=== PATIENT | female | born 1945 | race Caucasian/White ===

== ENCOUNTER 2020-05-20 09:59 | Outpatient (NON) | payer MEDICARE, OTHER, SELFPAY ==
[2020-05-21 01:53] LABS: SARS-CoV-2 RNA PCR Negative
== END 2020-05-20 10:00 ==
PROVIDERS: PCP Family Medicine; Visit Provider Physician Assistant
DX: R50.9 Fever, unspecified (principal); Z20.828 Contact with and (suspected) exposure to other viral communicable diseases
CPT/HCPCS: 87635; C9803; U0003

== ENCOUNTER → 2021-03-17 13:52 | Outpatient (CLI) | payer MEDICARE, OTHER, SELFPAY ==
--- NOTE | ~2021-03-17 | MM_ITS ---
EXAMINATION: MM screening [facility] BI w emperatriz HISTORY: Screening TECHNIQUE: Craniocaudal and mediolateral oblique 3-D tomosynthesis images were obtained and synthetic 2-D images were generated. CAD analysis was submitted and interpreted. COMPARISON: Comparison to multiple prior studies sequentially, with oldest reviewed study dated 07/17. BREAST PARENCHYMAL COMPOSITION: There are scattered areas of fibroglandular density. FINDINGS: There is no evidence of suspicious mass, calcification, or architectural distortion to sugg est malignancy in either breast. There has been no suspicious interval change. IMPRESSION: 1. No mammographic evidence of malignancy. 2. Recommend routine screening mammography in one year. BI-RADS Category 1: Negative Reviewed, dictated and finalized at location A.
== END ==
PROVIDERS: PCP Family Medicine; Visit Provider Family Medicine
DX: Z12.31 Encounter for screening mammogram for malignant neoplasm of breast (principal)
CPT/HCPCS: 77063; 77067

== ENCOUNTER 2022-01-24 11:07 | Outpatient (CLI) | payer MEDICARE, OTHER, SELFPAY ==
--- NOTE | ~2022-01-24 | XR_ITS ---
EXAM: XR wrist LT min 3V HISTORY: M25.532 -FALL LAST NIGHT, PAIN LT WRIST COMPARISON: None available FINDINGS: Decreased mineralization. No fracture or dislocation. No lytic or blastic lesion. Scattere d degenerative changes. No erosion or periosteal change. Soft tissues within normal limits. IMPRESSION: No acute osseous finding in the left wrist. Reviewed, dictated and finalized at location K.
== END 2022-01-24 11:08 | disposition home or self-care (01) ==
PROVIDERS: PCP Family Medicine; Visit Provider Family Medicine
DX: M25.532 Pain in left wrist (principal)
CPT/HCPCS: 73110

== ENCOUNTER → 2022-11-15 15:09 | Outpatient (CLI) | payer MEDICARE, OTHER, SELFPAY ==
--- NOTE | ~2022-11-15 | DEXA_ITS ---
Bone Density Report Name: ROBERTA CLARK Age: 77 Sex: Female Ethnicity: White Date of : 1945 Indication: postmenopausal osteoporosis; height loss; prior fracture; Referring Provider: Berenice Brown Study: Bone densitometry was performed. Exam Date: November 15, 2022 Accession number: [id number] Bone Density: Region BMD T-score Z-score Classification AP Spine (L1-L4) 0.898 -1.4 1.1 Osteopenia Femoral Neck (Right) 0.644 -1.8 0.3 Osteopenia Total Hip (Right) 0.771 -1.4 0.4 Osteopenia World Health Organization criteria for BMD impression classify patients as: Normal (T-score at or above -1.0), Osteopenia (T-score between -1.0 and -2.5), or Osteoporosis (T-score at or below -2.5). 10-year Fracture Risk: FRAX not reported because: Prior hip or vertebral fracture Previous Exams: Region Exam Age BMD T-score BMD Change BMD Change Date g/cm2 vs Baseline vs Previous AP Spine(L1-L4) 11/15/2022 77 0.898 -1.4 0.132* 0.132* 08/01/2009 64 0.766 -2.6 Total Hip(Right) 11/15/2022 77 0.771 -1.4 0.074* 0.074* 08/01/2009 64 0.697 -2.0 *Denotes significance at 95% confidence level, LSC for AP Spine = 0.022 g/cm2, LSC for Total Hip = 0.027 g/cm2 Clinical Information Provided by Patient: Have had a previous hip or vertebral fracture Has had a low trauma fracture Has used the following medications: Calcium Patient maximum height was 62 Menopause Age: 52 No regular weight bearing exercise Drinks caffeinated beverages Onset of menses at age 15 Number of children 2 Impression: The patient has low bone mass, based on the Right Femoral Neck T-score. The patient has risk factors, including: previous fracture. No significant bone loss was observed. Discussion: INCREASED RISK OF FRACTURE DUE TO HISTORY OF FRACTURE. The patient's previous fracture puts the patient at high risk of a future fracture. In untreated patients, the risk of osteoporotic fracture increases approximately two-fold for each 1.0 SD decrease in T-score. Low bone density is not the only risk factor for fracture; also consider factors such as patient's age, frailty or poor health, risk of falling, risk of injury, previous osteoporotic fracture, family history of osteoporosis, cigarette smoking, low body weight, etc. Not everyone with a low trauma fracture has osteoporosis; osteomalacia and other metabolic bone disorders should also be considered. Patients who have osteoporosis should be evaluated for specific diseases and conditions (secondary cause
--- NOTE | ~2022-11-15 | MM_ITS ---
EXAMINATION: MM screening [facility] BI w emperatriz HISTORY: Screening mammogram TECHNIQUE: Craniocaudal and mediolateral oblique 3-D tomosynthesis images were obtained and synthetic 2-D images were generated. CAD analysis was submitted and interpreted. COMPARISON: 03/17/2021, 06/04/2019, 11/12/2017 bilateral screening mammogram examinations BREAST PARENCHYMAL COMPOSITION: There are scattered areas of fibroglandular density. FINDINGS: There is no evidence of suspicious mass, calcification, or architectural distortion to sugg est malignancy in either breast. There has been no suspicious interval change. IMPRESSION: 1. No mammographic evidence of malignancy. 2. Recommend routine screening mammography in one year. BI-RADS Category 1: Negative Reviewed, dictated and finalized at location A. 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
== END ==
PROVIDERS: PCP Family Medicine; Visit Provider Family Medicine
DX: Z12.31 Encounter for screening mammogram for malignant neoplasm of breast (principal); Z78.0 Asymptomatic menopausal state; M85.88 Other specified disorders of bone density and structure, other site; M85.851 Other specified disorders of bone density and structure, right thigh
CPT/HCPCS: 77063; 77067; 77080

== ENCOUNTER 2023-03-07 14:59 | Emergency (ER) | payer MEDICARE, OTHER, SELFPAY ==
--- NOTE | ~2023-03-07 | CT_ITS ---
EXAMINATION: CT cervical spine wo con DATE: 03/07/2023 16:37 INDICATION: trauma TECHNIQUE: Computed tomography (CT) of the cervical spine was performed without intravenous contrast. Automated exposure control and iterative reconstruction technique were employed. The dose-length pro duct was 219.21 mGy-cm. COMPARISON: None. FINDINGS: Vertebral Body Alignment: Intact. Reversed lordosis, centered at C4. 2 mm anterolistheses at C3-4 and C7-T1, presumably on a degenerative basis. Craniocervical and atlantoaxial alignment: Moderate degenerative change. Alignment intact. Osseous structures/fracture: No evidence of a lytic or blastic process in the visualized spine. No e vidence of acute fracture. Cervical soft tissues: The paraspinal soft tissues planes are maintained. Small volume bilateral mast oid fluid collections. Biapical pleural scarring. Degenerative changes: Degenerative changes, without severe neural foraminal or central canal narrowin g. IMPRESSION: No acute fracture or traumatic malalignment in the cervical spine. Reviewed, dictated and finalized at location K.
--- NOTE | ~2023-03-07 | CT_ITS ---
EXAMINATION: CT brain wo con DATE: 03/07/2023 16:35 INDICATION: minor head . TECHNIQUE: Computed tomography (CT) of the head was performed without intravenous contrast. The mA wa s adjusted according to patient size. Iterative reconstruction technique was employed. The dose-lengt h product was 605.33 mGy-cm. COMPARISON: None. FINDINGS: No acute intracranial hemorrhage or extra-axial fluid collection. No hydrocephalus, mass, or herniation. No acute ischemic infarct. Unremarkable dural venous sinus attenuation. No acute osseous abnormality. Posterior scalp contusion and laceration. Small volume bilateral mastoid fluid. Ethmoid air cell, right frontal, right maxillary, and right sph enoid mucosal thickening. Likely cyst or polyp in the right sphenoid. The remaining aerated spaces ar e clear. Mild atrophy and chronic white matter change. Atherosclerotic intracranial calcification. IMPRESSION: No acute intracranial process. Reviewed, dictated and finalized at location K.
[2023-03-07 15:10] VITALS: BP 180/91; PULSE 68; RESP 16; TEMP 36.7; O2SAT 96
[2023-03-07] MEDS: TETANUS,DIPHTHERIA,AC PERTUSSIS ADULT (0.5 ML) BOOSTRIX IM (16:48)
--- NOTE | 2023-03-07 17:09 | ED.HEATRA ---
HPI - Head Injury General Chief complaint: Head Injury Stated complaint: GLF, lac to back of head, no LOC Time Seen by Provider: 03/07/23 16:15 History of Present Illness HPI Narrative: Patient is a 77-year-old female who presents ER after having a fall. She was in a parking lot avoiding a truck when she fell backwards striking her head. She saw stars and had immediate pain. She did not lose consciousness. She was placed in a c-collar by EMS. Patient does not take any blood thinning medications. She has no extremity pain or deformity. No additional concerns. She does have small lacerations but part of her head. She is unsure when her last tetanus shot was. Related Data Allergies Allergy/AdvReac Type Severity Reaction Status Date / Time benazepril Allergy Mild rash Verified 12/14/22 13:43 lisinopril AdvReac Unknown Cough Verified 12/14/22 13:43 Contrast Media Allergy Mild rash Uncoded 12/14/22 13:42 Review of Systems Review of Systems: All systems reviewed & are unremarkable except as noted in HPI and below Musculoskeletal: Musculoskeletal: Denies back pain, Denies arthralgias and Denies joint swelling Integumentary/Breasts: Skin/Breast: Denies erythema and Denies rash Comments: Scalp laceration Neurologic: Denies syncope, Reports headache(s), Denies focal weakness and Denies numbness PMFSH Past Medical History Medical History Hx of skin cancer, basal cell Hyperlipidemia Hypertension 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 HEAD: Normocephalic, 1 cm laceration posterior scalp. EYES: PERRL and EOMI. ENT: Mucous membranes moist. NECK: C-spine immobilized without midline tenderness. CHEST: Clear to auscultation. No respiratory distress. HEART: Regular rate and rhythm. Normal peripheral pulses. EXTREMITIES: Normal range of motion. No edema. NEURO: Alert and oriented x3. PSYCH: Normal mood and affect. Course Course Emergency Course: C-spine cleared. Laceration repaired. Tetanus updated. Patient having new stiffness in neck now and will be prescribed a muscle relaxer that she can take at home. Vital Signs Vital signs: Vital Signs Temperature 98.0 F 03/07/23 15:10 Pulse Rate 68 03/07/23 15:10 Respiratory Rate 16 03/07/23 15:10 Blood Pressure 180/91 H 03/07/23 15:10 Pulse Oximetry 96 03/07/23 15:10 Oxygen Delivery Room Air 03/07/23 15:10 Temperature 98.0 F 03/07/23 15:10 Pulse Rate 74 03/07/23 17:41 Respiratory Rate 18 03/07/23 17:41 Blood Pressure 158/84 H 03/07/23 17:41 Pulse Oximetry 98 03/07/23 17:41 Oxygen Delivery Room Air 03/07/23 15:10 Procedures Laceration Laceration 1: Date: 03/07/23 Time: 17:10 Site: scalp Size (cm): 1 Description: linear Depth: simple, single layer Pre-repair: irrigated ====== Skin Level ====== Skin layer closed with: horace Number of sutures: 2 ====== Subcutaneous Layer ====== ====== Muscle Layer ====== ====== Tendon Layer ====== MDM - Head Injury Imaging Data Radiologist's impression: ITS Impressions Head CT 03/07/23
[2023-03-07 17:41] VITALS: BP 158/84; PULSE 74; RESP 18; O2SAT 98
== END 2023-03-07 17:55 | disposition home or self-care (01) ==
LOC: ANHED 17:37
PROVIDERS: Emergency Provider Emergency Medicine; PCP Family Medicine
DX: S01.01XA Laceration without foreign body of scalp, initial encounter (principal); S13.4XXA Sprain of ligaments of cervical spine, initial encounter; Z23 Encounter for immunization; E78.5 Hyperlipidemia, unspecified; I10 Essential (primary) hypertension; F41.8 Other specified anxiety disorders; Z85.828 Personal history of other malignant neoplasm of skin; W18.39XA Other fall on same level, initial encounter
CPT/HCPCS: 12001; 70450; 72125; 90471; 90715; 99284

== ENCOUNTER 2023-04-04 12:49 | Outpatient (RCR) | payer MEDICARE, OTHER, SELFPAY ==
--- NOTE | 2023-04-04 13:44 | PTOPEVAL1 ---
Assessment and note entered by Elgin Drew Evaluation Information Assessment Status Evaluation Diagnosis dizziness Onset 03/07/23 Subjective Information Pt. report that she fell in the parking lot of [employer] on 03/07/23. She reports that she hit her head and was taken to the hospital. She reports after the fall she began to experience vertigo. she reports that she notices the dizziness with tilting her head up or down such brushing her teeth or with washing her hair. She reports she also notices with turning her head to the left. She did use meclizine, but did not notice relief with the medication. She reports that her symptoms are improving. She reports her last episode of dizziness was 2-3 days ago. She reports that she has to be able to drive because her cannot. She reports that the dizziness leaves her nervous about driving. She reports that her goal is to reduce her dizziness. Reported Pain Level Pain Score 0: Self Report Assessment PT Clinical Summary Pt. is a 78 year old female who enters the clinic due to developed dizziness. She presents with positive testing for BPPV. Pt. is instructed in the home Marybeth manuever and has a positive response to Rx with no dizziness noted on the 3rd set of the Marybeth. Skilled PT is indicated in order to continue to eliminate dizziness for improved IADL performance. Plan of Care Interventions Neuro Re-education Other Interventions canalith repositioning PT Services Indicated Yes Treatment Frequency and 1x/week x 3 visits Duration These treatments will address the objective and functional deficits as defined above. The patient will be advanced safely and appropriately in order for the patient to progress towards his/her prior level of function. Additional exercises will be introduced and as well as a comprehensive home exercise program upon discharge, if needed, ?to ensure carryover of functional gains achieved in the clinic. This treatment plan has been reviewed and agreement upon by the patient.
--- NOTE | 2023-04-04 13:47 | OPREHPOC ---
Outpatient Therapy Plan of Care This is a Multidisciplinary Plan of Care that may contain components documented by all disciplines (PT, OT, and ST.) PT Problem 1 PT Problem #1 Knowledge Deficit PT Goal 1 Goal independent performance of the home Marybeth Manuever to reduce dizziness Target Visit 2 PT Problem 2 PT Problem #2 Impaired Vestibular Syste PT Goal 1 Goal Pt. will recall no episode of dizziness in a 1 week period
--- NOTE | 2023-06-06 07:10 | PTOPDC ---
Assessment and note entered by El[facility] Evaluation Information Assessment Status Discharge - Pt Not Present Diagnosis dizziness Onset 03/07/23 Assessment PT Clinical Summary Mrs. Bacon attended her initial evaluation on . She cancelled her follow up appointment to care for her but states that she was doing much better. She has failed to return to the clinic or contact the clinic since 04/22/23. She will be discharged from our care at this time. Plan of Care PT Services Indicated
== END 2023-06-06 10:19 | disposition home or self-care (01) ==
LOC: ANHPT 12:49
PROVIDERS: PCP Family Medicine; Visit Provider Physician Assistant Medical
DX: H81.12 Benign paroxysmal vertigo, left ear (principal)
CPT/HCPCS: 95992; 97161

== ENCOUNTER 2023-12-26 11:38 | Outpatient (CLI) | payer MEDICARE, OTHER, SELFPAY ==
--- NOTE | ~2023-12-26 | US_ITS ---
Renal-Bladder ultrasound Clinical History: Chronic kidney disease Technique: Real-time sonographic imaging of the kidneys and urinary bladder was performed. Findings: The right kidney measures 10.6 cm in length and the left kidney measures 12.5 cm. There is no hydronephrosis or renal calculus identified. Renal cortical echogenicity is increased. Bilateral r enal cysts are present. The urinary bladder is moderately distended at the time of this exam. No intraluminal echoes are iden tified. No abnormal wall thickening is seen. Impression: Echogenic kidneys are compatible with chronic medical renal disease. Multiple bilateral renal cysts. No hydronephrosis is evident. Reviewed, dictated and finalized at location . Impression: Echogenic kidneys are compatible with chronic medical renal disease. Multiple bilateral renal cysts. No hydronephrosis is evident.
== END 2023-12-26 11:39 ==
LOC: MICIMG 11:39
PROVIDERS: PCP Family Medicine; Visit Provider Family Medicine
DX: N18.30 Chronic kidney disease, stage 3 unspecified (principal); N28.1 Cyst of kidney, acquired
CPT/HCPCS: 76775

== ENCOUNTER 2024-04-03 13:38 | Outpatient (CLI) | payer MEDICARE, OTHER, SELFPAY ==
--- NOTE | 2024-04-03 13:41 | ECHO_ITS ---
Patient Info Name: Estefani Bacon Age: 79 years : 1945 Gender: Female Ht: 60 in Wt: 153 lbs BSA: 1.74 m2 HR: 53 bpm BP: 165 / 82 mmHg Heart Rhythm: Sinus Rhythm Technical Quality: Fair Exam Date: 04/03/2024 1:48 PM Exam Location: Echo Lab Patient Status: Outpatient Admit Date: 04/03/2024 Staff Ordering Physician: Alden Philip DO Pan Washer Hand: Caroline Roberts RDCS Attending Provider: Alden Philip DO Referring Physician: Cedrick DASILVA; Exam Type: CA echo doppler color flow Study Info Indications R60.0 - Localized edema Complete two-dimensional, color flow and Doppler transthoracic echocardiogram is performed. Summary 1. Complete two-dimensional, color flow and Doppler transthoracic echocardiogram is performed. 2. Left ventricular chamber dimension is normal. 3. Left ventricular systolic function is normal, estimated at 65-70%. 4. The left ventricular diastolic function is grade III diastolic dysfunction. 5. E/e' 19 is elevated. 6. Left atrial chamber dimension is mildly enlarged. 7. There is trace tricuspid valve regurgitation. 8. No pulmonary hypertension, estimated pulmonary arterial systolic pressure is 34 mmHg. 9. There is trivial pericardial effusion. Left Ventricle E/e' 19 is elevated. Left ventricular chamber dimension is normal. Left ventricular systolic function is normal, estimated at 65-70%. The left ventricular diastolic function is grade III diastolic dysfunction. Right Ventricle Right ventricular systolic function is normal and with normal TAPSE 2.5 cm. Right ventricular chamber dimension is normal. Left Atria Left atrial chamber dimension is mildly enlarged. Right Atria Right atrial chamber dimension is normal. Aortic Valve The aortic valve is trileaflet. There is no aortic valve stenosis. There is no aortic valve regurgitation. Pulmonic Valve There is no pulmonic regurgitation. Mitral Valve There is no mitral valve stenosis. There is no mitral valve regurgitation. Tricuspid Valve There is trace tricuspid valve regurgitation. No pulmonary hypertension, estimated pulmonary arterial systolic pressure is 34 mmHg. Pericardium/Pleural There is trivial pericardial effusion. Inferior Vena Cava Normal inferior vena cava with >50% collapse upon inspiration consistent with normal right atrial pressure, 5 mmHg. Aorta The aortic root size at the sinus of Valsalva is normal. Left Ventricular Outflow Tract Name Value Normal LVOT 2D LVOT Diameter 2.0 cm LVOT Doppler LVOT Peak Gradient 5 mmHg LVOT Mean Gradient 2 mmHg LVOT VTI 24 cm LVOT VTI/AV VTI Ratio 0.8 LVOT Stroke Volume 74 ml LVOT CO 3.9 l/min LVOT CI 2.2 l/min/m2 Pulmonic Valve Name Value Normal RVOT Doppler RVOT Peak Gradient
== END 2024-04-03 13:39 | disposition home or self-care (01) ==
PROVIDERS: PCP Family Medicine; Visit Provider Internal Medicine Cardiovascular Disease
DX: R60.0 Localized edema (principal)
CPT/HCPCS: 93306

== ENCOUNTER 2024-07-23 13:02 | Emergency (ER) | payer MEDICARE, OTHER, SELFPAY ==
[2024-07-23 13:18] VITALS: BP 175/67; PULSE 48; RESP 16; TEMP 36.8; O2SAT 99
--- NOTE | 2024-07-23 13:36 | ED.FALL ---
HPI - Fall General Chief Complaint: Head Injury Stated Complaint: fall Time Seen by Provider: 07/23/24 13:36 Source: patient, RN notes reviewed and old records reviewed Mode of arrival: ambulatory Limitations: no limitations History of Present Illness HPI Narrative: 79-year-old female presents to the [facility] with complaints of a fall. Walking with a normal gait. Patient states that she hit the back of her head. No loss of consciousness, noted blurry vision change in vision. No nausea or vomiting. Denies chest pain. No neurologic deficits. Patient does not take blood thinners States that she went to her primary asking for radiology referral, was told to seek additional treatment. Explained to patient and family member that we do not do CT scans. Patient with no midline tenderness. No erythema, ecchymosis, laceration to the scalp Related Data Allergies Allergy/AdvReac Type Severity Reaction Status Date / Time benazepril Allergy Mild rash Verified 07/23/24 15:36 lisinopril AdvReac Unknown Cough Verified 07/23/24 15:36 Contrast Media Allergy Mild rash Uncoded 07/23/24 15:36 Review of Systems Review of Systems: All systems reviewed & are unremarkable except as noted in HPI and below Constitutional: Constitutional: Reports no additional constitutional complaints ENT: Reports system reviewed and no additional complaints, except as documented Cardiovascular: Cardiovascular: Reports no additional cardiovascular complaints, Denies chest pain and Denies dyspnea Respiratory: Respiratory: Reports no additional respiratory complaints, Denies chest congestion, Denies cough and Denies dyspnea Gastrointestinal: Gastrointestinal: Reports no additional gastrointestinal complaints, Denies abdominal pain, Denies nausea and Denies vomiting Musculoskeletal: Musculoskeletal: Reports no additional musculoskeletal complaints Integumentary/Breasts: Skin/Breast: Reports system reviewed and no additional complaints, except as docu PMFSH Past Medical History Medical History Chronic renal insufficiency, stage III (moderate) Hx of skin cancer, basal cell Hyperlipidemia Hypertension 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) Surgical History Surgical History Basal cell carcinoma of nasal crease History of hip surgery Family History Family History Other Cerebrovascular accident Family history of malignant neoplasm of breast in first degree relative Hypertension Social History Social History Smoking status: Never smoker Second hand tobacco smoke exposure: No Alcohol intake: current Substance use: never Substance use type: does not use Do You Feel Safe in your Home?: Yes Lack of Transportation: No Lack of Food: Never True Current Housing: I Have Housing Concerned About Future Housing: No Difficulty Paying Gas/Electric Bills: No Difficulty Paying for Meds: No Currently Unemployed: No Difficulty w/ Childcare or Family Care: No Living arrangements: with family Gender identity (if verbalized by the patient): Female Sexual Orientation (if Verbalized by the Patient): Straight or Heterosexual Spiritual care concerns: No Agree to blood products: Yes Comments At the time of my signature, I reviewed and agree with the nursing past medical, surgical, social, and family history. There is no relevant family history pertinent to the patient complaint. Exam Const: General: cooperative, healthy appearing, comfortable, no acute distress, well developed, alert and well nourished Nutritional Appearance: well nourished Orientation/consciousness: patient oriented x3 Limitations: no limitations HENMT: Head: normal to inspection Ears: hearing grossly normal bilaterally, external ears normal, TM's normal bilaterally, EAC's normal, mastoids normal and no periauricular adenopathy Face/Nose/Sinus: Normal external nose present, normal facial exam and face symmetric Face and sinus: normal facial exam and face symmetric Mouth: Yes Normal oral and palatal mucosa present, Yes lip normal and Yes tongue normal Throat: posterior oropharynx normal, uvula midline and no uvular edema Eyes: General: appearance normal, both eyes and all related structures Alignment and Position: alignment normal Periorbital: periorbital findings normal Neck: Neck: normal visual inspection, full ROM, no lymphadenopathy and no meningeal signs Chest: Chest palpation & inspection: normal inspection of the chest Resp: Effort & Inspection: normal respiratory effort and able to speak in complete sentences Auscultation: clear to auscultation bilaterally, no crackles, no rales, no rhonchi and no wheezes Cardio: Rate: regular rate Back/Spine/Pelvis: Back: no CVA tenderness Cervical Spine: normal cervical lordosis, cervical ROM normal, No cervical muscular tenderness and No pain with cervical ROM Thoracic/Lumbar Spine: thoracic and lumbar spine normal to inspection, No thoracic spinal tenderness and No lumbar spinal tenderness Skin: General skin exam: normal color and no rashes or lesions noted Lesions: no lesions Rashes: no rashes Wounds: no wounds Neuro: General: patient oriented x3, gait normal, tone normal, moves all extremities and no meningeal signs Cognition (Neuro): normal cognition Speech: normal speech Gait exam (Neuro): Normal gait present Extrem: General: normal to inspection, full ROM, capillary refill normal and normal gait Psych: Appearance: grossly normal and well kempt Mental Status: mental status grossly normal Speech and movement: Normal speech and movement present and Clear speech present Affect: normal affect Attitude: cooperative Course Course Level of Care: Express Care Visit Vital Signs Vital signs: Vital Signs Temperature 98.2 F 07/23/24 13:18 Pulse Rate 48 L 07/23/24 13:18 Respiratory Rate 16 07/23/24 13:18 Blood Pressure 175/67 H 07/23/24 13:18 Pulse Oximetry 99 07/23/24 13:18 Temperature 98.2 F 07/23/24 13:18 Pulse Rate 48 L 07/23/24 13:18 Respiratory Rate 16 07/23/24 13:18 Blood Pressure 175/67 H 07/23/24 13:18 Pulse Oximetry 99 07/23/24 13:18 Reviewed MDM - Fall MDM Narrative Medical decision making narrative: Patient sitting comfortably in exam room. Nontoxic, vitals stable. Patient presents with family member Discussed that we do not do CT scans. Patient with age concern for head trauma however patient denies any symptoms, not on blood thinners. Patient appropriate for outpatient treatment with follow-up, long discussion had with signs and symptoms to call 911 or go directly to the emergency room which patient and family member both verbalized understanding Discharge instructions reviewed with patient, as well as provided in writing per nursing staff. The instructions also include specific and strict return/GO TO THE ER as well as f/u information. All questions have been answered, and the patient deny any further questions with discharge and discharge plan. Some parts of this dictation were generated by voice recognition software and may contain typographical and/or grammatical inaccuracies. Differential Diagnosis Differential diagnosis: Likely concussion without loss of consciousness and other (Minor head trauma) Critical Care Time Critical Care Time Critical Care Time: No Discharge Plan Discharge Clinical Impression: Fall, Minor head injury Patient Disposition: Home, Self-Care Condition: Stable Instructions: Head Injury (ED), Fall Prevention (ED) Additional Instructions: If you develop any type of weakness, dizziness, blurry vision, change in vision, nausea, vomiting please go directly to the nearest emergency room. Patient Language: Burkinan Prescriptions: No Action atorvastatin 40 mg tablet 40 mg PO DAILY Qty: 90 3RF metoprolol succinate [Toprol XL] 100 mg tablet extended release 24 hr 100 mg PO DAILY Qty: 90 1RF valsartan 160 mg tablet 160 mg PO DAILY Qty: 90 1RF escitalopram oxalate 10 mg tablet 10 mg PO DAILY Qty: 90 2RF amlodipine 5 mg tablet 5 mg PO DAILY Qty: 90 2RF Follow-up/Referrals: Carmen Hightower MD [Primary Care Provider] - 1 Week ([facility] follow-up) Time of Disposition: 13:45
== END 2024-07-23 13:52 | disposition home or self-care (01) ==
PROVIDERS: Emergency Provider Nurse Practitioner; PCP Family Medicine
DX: S09.90XA Unspecified injury of head, initial encounter (principal); W19.XXXA Unspecified fall, initial encounter; I12.9 Hypertensive chronic kidney disease with stage 1 through stage 4 chronic kidney disease, or unspecified chronic kidney disease; N18.30 Chronic kidney disease, stage 3 unspecified; E78.5 Hyperlipidemia, unspecified; Z85.828 Personal history of other malignant neoplasm of skin
CPT/HCPCS: 99213; G0463

== ENCOUNTER 2024-09-28 14:53 | Outpatient (CLI) | payer MEDICARE, OTHER, SELFPAY ==
--- NOTE | ~2024-09-28 | MM_ITS ---
EXAMINATION: MM screening farrah BI w emperatriz HISTORY: Screening mammogram, family history of breast cancer in her sister. TECHNIQUE: Craniocaudal and mediolateral oblique 3-D tomosynthesis images were obtained and synthetic 2-D images were generated. CAD analysis was submitted and interpreted. COMPARISON: 11/15/2022, 03/17/2021, 06/04/2019 BREAST PARENCHYMAL COMPOSITION:Not Dense. There are scattered areas of fibroglandular density. FINDINGS: No suspicious mass, calcification, or architectural distortion are identified in either isabell ast to suggest malignancy. There has been no suspicious interval change. IMPRESSION: No mammographic evidence of malignancy. Recommend routine screening mammography in one year. BI-RADS Category 1: Negative Reviewed, dictated and finalized at location . INUING EDUCATION DIRECTOR
== END 2024-09-28 14:54 | disposition home or self-care (01) ==
PROVIDERS: PCP Family Medicine; Visit Provider Family Medicine
DX: Z12.31 Encounter for screening mammogram for malignant neoplasm of breast (principal)
CPT/HCPCS: 77063; 77067

== ENCOUNTER 2024-11-12 10:24 | Emergency (ER) | payer MEDICARE, OTHER, SELFPAY ==
[2024-11-12 10:57] VITALS: BP 108/63; PULSE 61; RESP 16; TEMP 37.1; O2SAT 99
--- NOTE | 2024-11-12 11:07 | ED.URI ---
HPI - URI/Sore Throat General Chief Complaint: Upper Respiratory Infection Stated Complaint: COUGH/CONGESTION Time Seen by Provider: 11/12/24 11:05 Source: patient, RN notes reviewed and old records reviewed Mode of arrival: ambulatory Limitations: no limitations History of Present Illness HPI Narrative: 79 year old female who presents to [facility] care with complaints of cough,body aches, SOB with exertion, runny nose, diarrhea this am,and some coughing fits with deep breathing for the past 4 days. Patient reports no fevers, no ear pain, or any sore throat or any difficulty with her breathing. Patient reports fatigue. Patient reports that she has been taking Mucinex, Tylenol and also Flonase nasal spray and also used Vicks. MD elicited complaint: cough Onset (ago): day(s) (4) Severity: moderate Able to tolerate fluids by mouth: Yes Treatments prior to arrival: acetaminophen and other (Flonase Mucinex and Vicks) Related Data Allergies Allergy/AdvReac Type Severity Reaction Status Date / Time benazepril Allergy Mild rash Verified 11/12/24 11:01 lisinopril AdvReac Unknown Cough Verified 11/12/24 11:01 Contrast Media Allergy Mild rash Uncoded 11/12/24 11:01 Review of Systems Review of Systems: CONSTITUTIONAL: Reports malaise,no chills, sweats, or fever. EYES: Denies visual changes, redness, or discharge. ENT: Reports rhinorrhea, congestion, no sinus pain,no otalgia and nosore throat. CARDIOVASCULAR: Denies chest pain, palpitations, or edema. RESPIRATORY: Reports cough.? Reports dyspnea with some exertion and coughing fits GASTROINTESTINAL: Denies abdominal pain, nausea, vomiting,+ diarrhea today. SKIN: Denies rash or itching. MUSCULOSKELETAL: Reports myalgia. NEUROLOGIC: Denies headache. 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) Hx of skin cancer, basal cell Hyperlipidemia Hypertension Surgical History Surgical History Basal cell carcinoma of nasal crease History of hip surgery Family History Family History Other Cerebrovascular accident Family history of malignant neoplasm of breast in first degree relative Hypertension Social History Social History Smoking status: Never smoker Second hand tobacco smoke exposure: No Alcohol intake: current Substance use: never Substance use type: does not use Do You Feel Safe in your Home?: Yes Lack of Transportation: No Lack of Food: Never True Current Housing: I Have Housing Concerned About Future Housing: No Difficulty Paying Gas/Electric Bills: No Difficulty Paying for Meds: No Currently Unemployed: No Difficulty w/ Childcare or Family Care: No Living arrangements: with family Gender identity (if verbalized by the patient): Female Sexual Orientation (if Verbalized by the Patient): Straight or Heterosexual Spiritual care concerns: No Agree to blood products: Yes Comments At time of signature, agree with nursing past medical, surgical, social and family history. There is no relevant family history pertinent to the presenting complaint Exam Narrative: GENERAL: Well-appearing, well-nourished, and in no acute distress. HEAD: Normocephalic EYES: PERRLA, conjunctivae clear ENT: Nares clear, turbinates edematous and erythematous, clear discharge. Mucous membranes moist. TM pearly garcai with dull light reflex bilaterally; no tragal tenderness. Oropharynx erythematous without lesions. Tonsils not enlarged and without exudate, no drooling, no hoarseness, no trismus, uvula midline.post nasal discharge NECK: Supple. No lymphadenopathy CHEST: Clear to auscultation, breath sounds equal. No wheezing, rhonchi, rales, or stridor. No respiratory distress, speaks in full sentences.cough present SAO2 99% on room air HEART: Regular rate and rhythm. No murmur heard. SKIN: Warm, dry, no rash. NEURO: Alert and oriented x3. PSYCH: Normal mood and affect Course Course Emergency Course: Patient is aware of diagnosis, understands and agrees to treatment plan.? Anticipatory guidance given.? Patient agrees to follow-up as directed and is aware of reasons to seek care at the emergency department. Portions of this record may have been created with voice recognition software Level of Care: Express Care Visit Vital Signs Vital signs: Vital Signs Oxygen Delivery Room Air 11/12/24 10:55 Temperature 37.1 C 11/12/24 10:57 Pulse Rate 61 11/12/24 10:57 Respiratory Rate 16 11/12/24 10:57 Blood Pressure 108/63 11/12/24 10:57 Pulse Oximetry 99 11/12/24 10:57 Oxygen Delivery Room Air 11/12/24 10:55 Reviewed MDM - URI/Sore Throat MDM Narrative Medical decision making narrative: Differential diagnosis considered: Juarez virus, strep pharyngitis, allergic rhinitis, upper respiratory tract infection, sinusitis, rhinosinusitis, nasopharyngitis. viral pharyngitis, otitis media, otitis externa, pneumonia, bronchitis, viral cough syndrome, viral syndrome, and influenza.? Exam findings show no acute concerns or changes; patient is non-toxic appearing and is in no distress.? Patient is appropriate for outpatient treatment and follow-up. Differential Diagnosis Differential diagnosis: Likely upper respiratory infection, viral infection, influenza and other (COVID acute cough) Medical Records Attestation: I reviewed the patient's medical records. Lab Data Attestation: I reviewed the patient's lab results. Lab results narrative: Influenza A positive, Influenza B negative, COVID antigen negative Labs: Lab Results 11/12/24 Range/Units 11:18 POC Influenza A Ag Positive (Negative) POC Influenza B Ag Negative (Negative) POC SARS CoV-2 Ag Negative (Negative) reviewed Critical Care Time Critical Care Time Critical Care Time: No Discharge Plan Discharge Clinical Impression: Influenza A Patient Disposition: Home, Self-Care Condition: Stable Instructions: Antibiotic Form, Influenza (ED), Acute Cough (ED) Additional Instructions: Increase fluids especially juices and water [id number] cough and cold medicine of your choice for your symptoms continue Mucinex daily must drink plenty of fluids while taking this medication Steroids as directed--take with food heat to the face 20-30 minutes 4-6 times a day for pain Salt water gargles, throat lozenges or throat sprays as desired Tylenol or ibuprofen for any fever or pain If your symptoms persist, change or worsen significantly before you can contact your personal physician then please, without delay, go to the emergency department for further evaluation. Follow-up with PCP in 7-10 days or sooner if needed must be fever free without use of Tylenol or ibuprofen for 24 hours before you can be around others, typically fluid last about 5 days Patient Language: Botswanan Prescriptions: New prednisone 20 mg tablet 40 mg PO DAILY Qty: 10 0RF No Action atorvastatin 40 mg tablet 40 mg PO DAILY Qty: 90 3RF escitalopram oxalate 10 mg tablet 10 mg PO DAILY Qty: 90 2RF amlodipine 5 mg tablet 5 mg PO DAILY Qty: 90 2RF metoprolol succinate [Toprol XL] 100 mg tablet extended release 24 hr 100 mg PO DAILY Qty: 90 1RF valsartan 160 mg tablet 160 mg PO DAILY Qty: 90 1RF Follow-up/Referrals: Carmen Hightower MD [Primary Care Provider] - Time of Disposition: 11:24 Quality Renan Coma Scale Eyes: Open Verbal: Oriented and Alert Motor: Follows Commands Renan Coma Total Score: 15
[2024-11-12 11:21] LABS: EDCOVIDSCREEN Negative (Negative); EDINFLUASCREEN Positive (Negative); EDINFLUBSCREEN Negative (Negative)
== END 2024-11-12 11:28 | disposition home or self-care (01) ==
PROVIDERS: Emergency Provider Registered Nurse; PCP Family Medicine
DX: J10.1 Influenza due to other identified influenza virus with other respiratory manifestations (principal); Z20.822 Contact with and (suspected) exposure to COVID-19; I12.9 Hypertensive chronic kidney disease with stage 1 through stage 4 chronic kidney disease, or unspecified chronic kidney disease; N18.30 Chronic kidney disease, stage 3 unspecified; E78.5 Hyperlipidemia, unspecified; Z85.828 Personal history of other malignant neoplasm of skin; F41.3 Other mixed anxiety disorders; F32.A Depression, unspecified
CPT/HCPCS: 87426; 87804; 99213; G0463

== ENCOUNTER 2025-01-29 12:43 | Emergency (ER) | payer MEDICARE, OTHER, SELFPAY ==
[2025-01-30 13:19] LABS: EDINFLUASCREEN Negative (Negative); EDINFLUBSCREEN Negative (Negative)
[2025-02-04 08:57] LABS: EDCOVIDSCREEN NEGATIVE (Negative)
== END 2025-01-29 13:22 | disposition home or self-care (01) ==
PROVIDERS: Emergency Provider Nurse Practitioner Family; PCP Family Medicine
DX: J06.9 Acute upper respiratory infection, unspecified (principal); Z20.822 Contact with and (suspected) exposure to COVID-19
CPT/HCPCS: 87081; 87426; 87637; 87804; 87880; 99213; G0463

== ENCOUNTER 2025-04-05 12:31 | Outpatient (CLI) | payer MEDICARE, OTHER, SELFPAY ==
--- NOTE | ~2025-04-05 | XR_ITS ---
EXAM/ PROCEDURE: XR hand LT min 3V - 04/05/2025 12:41 CDT HISTORY: 80 years old Female with M79.642 - Pain in left hand COMPARISON: None available TECHNIQUE: Three view(s) FINDINGS/ IMPRESSION: There are no fractures or dislocations.Joint space narrowing, subchondral sclerosis, subchondral cyst formation and osteophyte formation, compatible with mild osteoarthritis. Reviewed, dictated and finalized at location A.
== END 2025-04-05 12:32 | disposition home or self-care (01) ==
PROVIDERS: PCP Physician Assistant Surgical; Visit Provider Physician Assistant Surgical
DX: M79.642 Pain in left hand (principal)
CPT/HCPCS: 73130

== ENCOUNTER 2025-04-06 12:40 | Emergency (ER) | payer MEDICARE, OTHER, SELFPAY ==
[2025-04-06] VITALS (11 sets, daily range): BP systolic 147–171; BP diastolic 55–81; PULSE 60–73; RESP 13–22; TEMP 36.6; O2SAT 95–100
--- NOTE | ~2025-04-06 | XR_ITS ---
EXAMINATION: XR chest 2V Exam Date/Time: 04/06/2025 15:53 CDT HISTORY: weakness Comparison: None. RESULT: Lines, tubes, and devices: None. Lungs and pleura: Subsegmental consolidation in the right upper lobe. Cardiomediastinal silhouette: Stable. Other: No acute osseous or upper abdominal finding. IMPRESSION: Findings concerning for subsegmental right upper lobe pneumonia. Reviewed, dictated and finalized at location K.
--- OUTSIDE RECORDS SUMMARY | 2025-04-06 12:42 | XMS_ITS | Clinical Summary ---
Author Organization [facility] [address] Address [address] [place] [id number] Care Team Providers Care Juvenile Officer Name Role Phone Carmen Hightower MD Primary Care Provider [phone] Allergies Active Allergy Reactions Criticality Noted Date Comments Benazepril Iodine And Iodide Containing Products Medications metoprolol XL (TOPROL-XL) 50 mg 24 hr tablet take 1 tablet by oral route every day 30 6 5 Active losartan (COZAAR) 100 mg tablet take 1 tablet by oral route every day 0 0 5 Active Additional Information Patient not taking.Reported on 05/18/2022 valACYclovir (VALTREX) 500 mg tablet take 1 tablet by oral route every day 0 0 5 Active amLODIPine (NORVASC) 5 mg tablet take 1 tablet by oral route every day 0 0 5 Active atorvastatin (LIPITOR) 40 mg tablet take 1 tablet by oral route every day 0 0 5 Active valsartan (DIOVAN) 80 mg tablet 2 Active escitalopram (LEXAPRO) 10 mg tablet 2 Active metoprolol XL (TOPROL-XL) 100 mg 24 hr tablet 2 Active Active Problems Problem Noted Date Diagnosed Date Lightheadedness 09/19/2015 Overview (12/21/2016): Lightheadedness Bradycardia 06/13/2015 Overview (12/21/2016): Bradycardia Benign hypertension 06/13/2015 Overview (12/21/2016): HTN (hypertension), benign Dyslipidemia 06/13/2015 Overview (12/21/2016): Dyslipidemia Dizziness 06/13/2015 Overview (12/21/2016): Dizziness Palpitations 06/13/2015 Overview (12/21/2016): Palpitations Medical History Medical History Date Comments Superficial basal cell carcinoma Cancer, basal Cell; Comments: [facility] 06/13/2015 - Osteoporosis Osteoporosis Hypertension Hypertension Hypercholesterolemia Hypercholes terolemia; Comments: [facility] 06/13/2015 - Family History Medical History Relation Name Comments Heart attack Father 2 Myocardial infa rction; Cause of : Myocardial infarction Other Mother auto accident; Breast cancer Sister Cancer, breast ; Relation Name Status Comments Father 1 Father 2 Mother Sister Social History Tobacco Use Types Packs/Day Years Used Date Smoking Tobacco: Never Alcohol Use Standard Drinks/Week Comments Yes 0 (1 standard drink = 0.6 oz pur e alcohol) Personal Safety Answer Date Recorded Getting School Help Needed Not on file 08/28 Comments Unknown Sex and Gender Information Value Date Recorded Sex Assigned at Not on file Legal Sex Female 9:25 AM [employer] Gender Identity Not on file Sexual Orientation Not on file Obstetrics History Last Filed Vital Signs Vital Sign Reading Time Taken Comments Blood Pressure 136/88 01/09/2023 4:13 PM CDT Pulse 60 01/09/2023 4:13 PM CDT Temperature 36.8 C (98.3 F) 10/17/2022 10:23 AM [employer] Respiratory Rate 14 01/09/2023 4:13 PM CDT Oxygen Saturation 96% 01/09/2023 4:13 PM CDT Inhaled Oxygen Concentration - - Weight 70.8 kg (156 lb) 01/09/2023 4:13 PM CDT Height 154.9 cm (5' 1) 01/09/2023 4:13 PM CDT Body Mass Index 29.48 01/09/2023 4:13 PM CDT Plan of Treatment Health Maintenance Due Date Last Done Comments Depression Screening 1945 Fall Risk Assessment 1945 Hepatitis C Screening 1945 Osteoporosis Screening-Bone Density Scan 1945 DTaP/Tdap/Td Vaccine (1 - Tdap) 1958 Hepatitis B Screening 1965 Pneumococcal vaccine 65+ (1 of 1 - PCV) 1997 Zoster Vaccine (1 of 2) 1997 Well Visit 65+ 2012 Covid-19 Vaccine ( season) 05/17/202401/2021, 10/20/2020 Influenza Vaccine (#1) 2025 Insurance MEDICARE [facility] Address: [address] [address] [place] [address] [employer] Care Teams Juvenile Officer Relationship Specialty Start Date End Date Carmen Hightower MD PCP - General 08/27/08
--- OUTSIDE RECORDS SUMMARY | 2025-04-06 12:42 | XMS_ITS | Clinical Summary ---
Author Organization [facility] Address [address] [place] [address] Care Team Providers Care Mechanical Cad Designer Name Role Phone Carmen Hightower MD Primary Care Provider [phone] Source Comments [facility],non-owned Affiliates and Associated Physician Practices is amultiple site organization consisting of ambulatory clinics and hospital sitesin [place], [place], [place] and [place]. This disclosure is being madepursuant to the Care Everywhere program and may not contain all information available regarding this patient. Last updated 18.[facility] Allergies Active Allergy Reactions Criticality Noted Date Comments Contrast-Iodinated Agents For Ct/Other Urticaria,Nausea and/or Vomiting Medium 06/04/2024 Benazepril Rash Medium 04/04/2011 Medications * Be aware that medications may not be up to date on this document. Alwaysverify current medications with the patient. atorvastatin (LIPITOR) 40 MG tablet Take 1 (one) tablet by mouth Active metoprolol succinate XL 24hr (TOPROL XL) 100 MG tablet Take 1 (one) tablet by mouth Active valsartan (Diovan) 160 MG tablet Take 1 (one) tablet by mouth once daily 01/29/2020 Active escitalopram (LEXAPRO) 5 MG tablet Take 1 (one) tablet by mouth once daily Active amLODIPine (NORVASC) 5 MG tablet 2 (two) tablets every 24 hours Active hydrocortisone (Hytone) 2.5 % creamIndication s:Intertrigo APPLY TO AREA OF RASH UNDER BREASTS TWICE A DAY NEEDED 30 g 3 11/27/2024 Active ketoconazole (Nizoral) 2 % creamIndication s:Intertrigo APPLY TO AREA OF RASH UNDER BREASTS TWICE A DAY NEEDED 30 g 3 11/27/2024 Active Active Problems Problem Noted Date Diagnosed Date History of malignant melanoma of skin 11/29/2023 Melanoma of neck 12/22/2020 Basal cell carcinoma of nose 08/01/2018 Family history of melanoma 05/06/2018 Assessment & Plan (12/05/2020 11:22 AM CDT): Sister with prior melanoma Photoprotection Self exams Skin exams Actinic keratosis 05/06/2018 Seborrheic keratosis 05/06/2018 Personal history of other malignant neoplasm of skin 07/13/2016 Assessment & Plan (12/05/2020 11:23 AM CDT): Several prior nmsc Self exams Skin exams Photoprotection Lightheadedness 09/19/2015 Overview (11/25/2020): Dizziness Lightheadedness Benign hypertension 06/13/2015 Overview (11/25/2020): HTN (hypertension), benign Bradycardia 06/13/2015 Overview (11/25/2020): Bradycardia Dyslipidemia 06/13/2015 Overview (11/25/2020): Dyslipidemia Palpitations 06/13/2015 Overview (11/25/2020): Palpitations Resolved Problems Problem Noted Date Diagnosed Date Resolved Date Basal cell carcinoma of nasal tip 07/02/2018 07/02/2018 Family History Medical History Relation Name Comments None Known Brother CVA Father Hypertension Father None Known Maternal Aunt None Known Maternal Grandfather None Known Maternal Grandmother None Known Maternal Uncle Hypertension Mother None Known Other None Known Paternal Aunt None Known Paternal Grandfather None Known Paternal Grandmother None Known Paternal Uncle Cancer - Skin, Non Melanoma Sister 1 Cancer - Skin, Melanoma Sister 2 Cancer Sister 3 breast Allergy (Severe) Neg Hx Asthma Neg Hx Cancer - Breast Neg Hx Cancer - Other Neg Hx Eczema Neg Hx Hemophilia Neg Hx Psoriasis Neg Hx Rashes/Skin Problems Neg Hx Relation Name Status Comments Brother Father Maternal Aunt Maternal Grandfather Maternal Grandmother Maternal Uncle Mother Other Paternal Aunt Paternal Grandfather Paternal Grandmother Paternal Uncle Sister 1 Alive Sister 2 Alive Sister 3 Alive Social History Tobacco Use Types Packs/Day Years Used Date Smoking Tobacco: Never Smokeless Tobacco: Never Tobacco Cessation:Counseling Given: Not Answered Alcohol Use Standard Drinks/Week Comments Yes 0 (1 standard drink = 0.6 oz pur e alcohol) Comments Unknown Sex and Gender Information Value Date Recorded Sex Assigned at Female 06/03/2024 7:44 PM CDT 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 Gender Identity Female 06/03/2024 7:44 PM CDT Sexual Orientation Straight 06/03/2024 7: 44 PM CDT Last Filed Vital Signs Vital Sign Reading Time Taken Comments Blood Pressure 150/80 12/22/2020 2:20 PM CDT Pulse 57 12/22/2020 1:05 PM CDT Temperature 36.7 C (98 F) 03/25/2020 10:33 AM CDT Respiratory Rate - - Oxygen Saturation 96% 05/06/2019 12:00 PM CDT Inhaled Oxygen Concentration - - Weight 68 kg (150 lb) 12/22/2020 1:05 PM CDT Height 154.9 cm (5' 1) 12/22/2020 1:05 PM CDT Body Mass Index 28.34 12/22/2020 1:05 PM CDT Plan of Treatment Upcoming Encounters Date Type Department Care Team (Late st Contact Info) Description 06/03/2025 12:50 PM CDT Office Visit [facility] - Dermatology [address] [place] [address], [place] [id number] Katlin Abbott MD [address] [facility] [facility] [address] [place] [address] Health Maintenance Due Date Last Done Comments BONE DENSITY TESTING 1945 MEDICARE AWV 12 MONTHS 1945 HEPATITIS C SCREENING 03/06/1965 DTAP/TDAP/TD VACCINES (1 - Tdap) 1966 PNEUMOCOCCAL VACCINE 50+ (1 of 1 - PCV) 1997 ZOSTER VACCINE (1 of 2) 1997 Respiratory Syncytial Virus (RSV) Vaccine Pt: or over 60 yrs (1 - 1-dose 75+ series) 2022 COVID-19 VACCINE (1 - 2023-2 5 season) 2024 DEPRESSION SCREENING 09/16/2024 INFLUENZA VACCINE (#1) 2025 HEPATITIS B VACCINE Aged Out No longe r eligible based on patient's age to complete this topic HIB VACCINE Aged Out No longer eligi ble based on patient's age to complete this topic HPV VACCINE Aged Out No longer eligi ble based on patient's age to complete this topic MENINGOCOCCAL (Group B) VACC INE SHARED DECISION-MAKING Aged Out No longer eligibl e based on patient's age to complete this topic MENINGOCOCCAL GROUPS A/C/Y/W VACCINE Aged Out No longer eligible b ased on patient's age to complete this topic Insurance MEDICARE [facility] [place] MEDICARE Care Teams Mechanical Cad Designer Relationship Specialty Start Date End Date Carmen Hightower MD [address] [place] [address] PCP - General Family Medicine 11/29/23
--- OUTSIDE RECORDS SUMMARY | 2025-04-06 12:42 | XMS_ITS | Encounter Summary ---
Author Organization [facility] Address [address] [place] [address] Care Team Providers Care Vulcanized Fiber Unit Operator Name Role Phone Carmen Hightower MD Primary Care Provider [phone] Carmen Hightower MD Primary Care Provider [phone] Reason for Visit * Reason Onset Date Comments Results 12/05/2020 Encounter Details Date Type Department Care Team (Late st Contact Info) Description 12/05/2020 Telephone [facility] [address] [place] [address], [facility] [place] [address] Mary Pereira PA [address] [place] [address] [address] [place] [address] Results Social History Tobacco Use Types Packs/Day Years Used Date Smoking Tobacco: Never Smokeless Tobacco: Never Alcohol Use Standard Drinks/Week Comments Yes 0 (1 standard drink = 0.6 oz pur e alcohol) Comments Unknown Sex and Gender Information Value Date Recorded Sex Assigned at Female 06/03/2024 7:44 PM CDT 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 Gender Identity Female 06/03/2024 7:44 PM CDT Sexual Orientation Straight 06/03/2024 7: 44 PM CDT documented as of this encounter Miscellaneous Notes * Telephone Encounter - Mary Pereira PA - 12/05/2020 9:59 AM CDT I spoke to patient regarding biopsy results from right neck We discussed consultation /surgery with Dr Jaime for this 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 documented in this encounter Plan of Treatment Upcoming Encounters Date Type Department Care Team (Late st Contact Info) Description 06/03/2025 12:50 PM CDT Office Visit [facility] - Dermatology [address] [place] [address], [place] [address] Katlin Abbott MD [address] [place] [address] 3 [place] [address] documented as of this encounter Visit Diagnoses Not on filedocumented in this encounter Care Teams Vulcanized Fiber Unit Operator Relationship Specialty Start Date End Date Carmen Hightower MD [address] [place] [address] PCP - General 03/25/09 11/28/23 Carmen Hightower MD [address] [place] [address] PCP - General Family Medicine 11/29/23 documented as of this encounter
--- OUTSIDE RECORDS SUMMARY | 2025-04-06 12:42 | XMS_ITS | Referral Summary ---
Author Organization [facility] [address] Address [address] [place] [id number] Care Team Providers Care Garage Mechanic Name Role Phone Carmen Hightower MD Primary Care Provider [phone] Allergies Active Allergy Reactions Criticality Noted Date [...] (12/21/2016): Dizziness Palpitations 06/13/2015 Overview (12/21/2016): Palpitations Social History Tobacco Use Types Packs/Day Years Used Date Smoking Tobacco: Never Alcohol Use Standard Drinks/Week Comments Yes 0 (1 standard drink = 0.6 oz pur e alcohol) Personal Safety Answer Date Recorded Getting School Help Needed Not on file 08/28 Comments Unknown Sex and Gender Information Value Date Recorded Sex Assigned at Not on file 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 Gender Identity Not on file Sexual Orientation Not on file Last Filed Vital Signs Vital Sign Reading Time Taken Comments Blood Pressure 136/88 01/09/2023 4:13 PM CDT Pulse 60 01/09/2023 4:13 PM CDT Temperature 36.8 C (98.3 F) 10/17/2022 10:23 AM POLYGRAPH TECHNICIAN Respiratory Rate 14 01/09/2023 4:13 PM CDT Oxygen Saturation 96% 01/09/2023 4:13 PM CDT Inhaled Oxygen Concentration - - Weight 70.8 kg (156 lb) 01/09/2023 4:13 PM CDT Height 154.9 cm (5' 1) 01/09/2023 4:13 PM CDT Body Mass Index 29.48 01/09/2023 4:13 PM CDT Plan of Treatment Not on file Insurance MEDICARE FOR LIFE Care Teams Garage Mechanic Relationship Specialty Start Date End Date Carmen Hightower MD PCP - General 08/27/08
--- OUTSIDE RECORDS SUMMARY | 2025-04-06 12:42 | XMS_ITS | Continuity of Care Document ---
Author Name [facility] Organization [facility] Care Team Providers Care Play Back Operator Name Role Phone [facility] Unavailable Unavailable Medications Combined list of outpatient medications from Department of Defense and Veterans Affairs facilities.Medications provided include 1) outpatient medications from the last 15 months, and 2) patient-reported medications. Medication Details Route Status Patient Instructions Prescription Expires Prescription Number Last Dispense Date Ordering Provider Order Date Order Qty Source AMLODIPINE BESYLATE (AMLODIPINE BESYLATE), 10 MG, TABLET, ORAL, [employer], 1000 ea. BOTTLE Active [id number] 2023 30 Pharmac y Data Transac tion Service Facilit y ATORVASTATI N CALCIUM (atorvastat in calcium), 40 MG, TABLET, ORAL, [employer], 1000 ea. BOTTLE Active [id number] 2023 90 Pharmac y Data Transac tion Service Facilit y HYDROCHLORO THIAZIDE (hydrochlor othiazide), 25 MG, TABLET, ORAL, [employer] 1000 ea. BOTTLE Active [id number] 2023 90 Pharmac y Data Transac tion Service Facilit y Social History Combined list of available smoking, tobacco, and other social history from Department of Defense and Veterans Affairs facilities. Social History Type Response Date Comment Mariya rushing This section is an empty social history section. DoD
--- NOTE | 2025-04-06 15:35 | ECG_ITS ---
Test Date: 2025-04-06 15:39:18 Measurements Intervals [place] Rate: 64 P: 58 MO: 165 QRS: 3 QRSD: 119 T: 20 QT: 428 QTc: 442 Interpretive Statements SINUS RHYTHM LOW QRS VOLTAGE IN PRECORDIAL LEADS [QRS DEFLECTION < 1.0 mV IN CHEST LEADS] INCOMPLETE RIGHT BUNDLE BRANCH BLOCK [90+ ms QRS DURATION, TERMINAL R IN V1/V2, 40+ ms S IN I/aVL/V4/V5/V6] ABNORMAL ECG No previous ECG available for comparison Electronically Signed On 04-07-2025 09:56:24 CDT by David Turpin M.D.
--- NOTE | 2025-04-06 15:46 | ED_ITS ---
HPI - Weakness General Chief complaint: Recheck/Abnormal Lab/Rx <Dianelys Shields APRN - Last Filed: 04/06/25 15:48> Stated complaint: I think I have low potassium. <Dianelys Shields APRN - Last Filed: 04/06/25 15:48> Time Seen by Provider: 04/06/25 15:40 <Dianelys Shields APRN - Last Filed: 04/06/25 15:48> Focused HPI: Patient is a 80-year-old female who presents to the ER with 2 day history of muscle weakness, nausea, lower blood pressure, dizziness and chills. She reports she had similar symptoms many years ago when patient was started on hydrochlorothiazide and her potassium was low. Patient reports she was taken off of hydrochlorothiazide at that time, then restarted it a few months ago. She denies any urinary symptoms, cough, chest pain, or recent fevers. Patient endorses a history of high blood pressure, hip fracture 2017, chronic kidney disease, a right bundle branch block. GENERAL: Well-appearing, well-nourished, and in no acute distress. HEAD: Normocephalic, atraumatic. CHEST: Clear to auscultation. ?No respiratory distress. HEART: Regular rate and rhythm.? NEURO: ?Alert and oriented x3. Patient screened in triage and initial orders placed.? ?Additional care and disposition to be based upon?diagnostic testing and treatment. <Dianelys Shields APRN - Last Filed: 04/06/25 15:48> Related Data Allergies/Adverse reactions: Allergies Allergy/AdvReac Type Severity Reaction Status Date / Time benazepril Allergy Mild rash Verified 04/05/25 11:02 lisinopril AdvReac Unknown Cough Verified 04/05/25 11:02 Contrast Media Allergy Mild rash Uncoded 04/05/25 11:02 <Dianelys Shields APRN - Last Filed: 04/06/25 15:48> Review of Systems 2 Review of Systems: All systems reviewed & are unremarkable except as noted in HPI and below <Lucia Perdomo PA-C - Last Filed: 04/06/25 19:35> PMFSH Past Medical History Medical History: Medical History Chronic renal insufficiency, stage III (moderate) 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) Hx of skin cancer, basal cell Hyperlipidemia Hypertension <Dianelys Shields, RADIO REPAIRMAN - Last Filed: 04/06/25 15:48> Surgical History Surgical History: Surgical History Basal cell carcinoma of nasal crease History of hip surgery <Dianelys Shields, RADIO REPAIRMAN - Last Filed: 04/06/25 15:48> Family History Family History: Family History Other Cerebrovascular accident Family history of malignant neoplasm of breast in first degree relative Hypertension <Dianelys Shields, RADIO REPAIRMAN - Last Filed: 04/06/25 15:48> Social History Social History: Social History (Updated 04/05/25 @ 14:28 by Cynthia Bejarano [facility]) Smoking status: Never smoker Second hand tobacco smoke exposure: No Alcohol intake: current Substance use: never Substance use type: does not use Current Housing: Decline to Answer Concerned About Future Housing: Decline to Answer Difficulty Paying Gas/Electric Bills: Decline to Answer Difficulty Paying for Meds: Decline to Answer Currently Unemployed: Decline to Answer Education: Decline to Answer Difficulty w/ Childcare or Family Care: Decline to Answer Living arrangements: with family Gender identity (if verbalized by the patient): Female Sexual Orientation (if Verbalized by the Patient): Straight or Heterosexual Spiritual care concerns: No Agree to blood products: Yes <Dianelys Shields, RADIO REPAIRMAN - Last Filed: 04/06/25 15:48> Exam 2 Narrative: GENERAL: Well-appearing, well-nourished, and in no acute distress. HEAD: Normocephalic, atraumatic. EYES: EOMI. ENT: Nares clear, no rhinorrhea or epistaxis. Mucous membranes moist. Oropharynx without tonsillar hypertrophy exudate or other lesions. Bilateral TMs pearly garcia non-bulging NECK: Supple. No adenopathy or masses. CHEST: No respiratory distress. Rales in the right upper lobe. No wheezes or rhonchi HEART: Regular rate and rhythm. No murmur heard. Normal peripheral pulses. EXTREMITIES: Normal range of motion. No edema. SKIN: Warm, dry, no rash. NEURO: No focal deficits. Alert and oriented x3. PSYCH: Normal mood and affect <Lucia Perdomo PA-C - Last Filed: 04/06/25 19:35> Course Course Emergency Course: Patient updated on her workup and agrees with plan of care <Lucia Perdomo PA-C - Last Filed: 04/06/25 19:35> Vital Signs Vital signs: Vital Signs Temperature 97.9 F 04/06/25 12:55 Pulse Rate 63 04/06/25 12:55 Respiratory Rate 16 04/06/25 12:55 Blood Pressure 147/55 H 04/06/25 12:55 Pulse Oximetry 99 04/06/25 12:55 Oxygen Delivery Room Air 04/06/25 12:55 Temperature 97.9 F 04/06/25 12:55 Pulse Rate 73 04/06/25 16:34 Respiratory Rate 16 04/06/25 16:34 Blood Pressure 148/72 H 04/06/25 16:34 Pulse Oximetry 98 04/06/25 16:34 Oxygen Delivery Room Air 04/06/25 12:55 <Dianelys Shields, RADIO REPAIRMAN - Last Filed: 04/06/25 15:48> Vital Signs Temperature 97.9 F 04/06/25 12:55 Pulse Rate 63 04/06/25 12:55 Respiratory Rate 16 04/06/25 12:55 Blood Pressure 147/55 H 04/06/25 12:55 Pulse Oximetry 99 04/06/25 12:55 Oxygen Delivery Room Air 04/06/25 12:55 Temperature 97.9 F 04/06/25 12:55 Pulse Rate 73 04/06/25 16:34 Respiratory Rate 16 04/06/25 16:34 Blood Pressure 148/72 H 04/06/25 16:34 Pulse Oximetry 98 04/06/25 16:34 Oxygen Delivery Room Air 04/06/25 12:55 <Lucia Perdomo PA-C - Last Filed: 04/06/25 19:35> MDM - Weakness MDM Narrative Medical decision making narrative: Patient presents the emergency department for symptoms ongoing over the last 3 days. Reports chills, feeling unwell, cough, some shortness of breath. She is afebrile and nontoxic appearing. Her vitals are stable. Cbc without leukocytosis. Metabolic panel with kidney function that is maybe mildly elevated from baseline. Patiently hydrated in the ED. urine without evidence of infection. Influenza, RSV and COVID screens are negative. Chest x-ray shows right upper lobe pneumonia. Patient will be started on oral antibiotics. Instructed to have follow-up with her primary provider. She was given warnings to return to the ER <Lucia Perdomo PA-C - Last Filed: 04/06/25 19:35> Differential Diagnosis Differential diagnosis: Likely anemia, dehydration and other (Electrolyte derangement, pneumonia, viral infection, dehydration) <Lucia Perdomo PA-C - Last Filed: 04/06/25 19:35> Lab Data Attestation: I reviewed the patient's lab results. <Lucia Perdomo PA-C - Last Filed: 04/06/25 19:35> Result diagrams: 04/06/25 15:48 04/06/25 15:48 <Dianelys Shields APRN - Last Filed: 04/06/25 15:48> Labs: Lab Results 04/06/25 04/06/25 04/06/25 Range/Units 15:48 16:26 18:59 WBC 7.9 (4.5-10.0) K/mm3 RBC 3.90 L (4.2-5.4) M/mm3 Hgb 11.3 L (12.0-15.0) g/dL Hct 34.6 L (37.0-47.0) % MCV 88.7 (80-100) fl MCH 29.0 (26-34) pg MCHC 32.7 (32-36) g/dl RDW 12.8 (11.5-14.5) % Plt Count 232 (150-375) k/mm3 MPV 10.1 (7.4-10.4) fl Immature Gran % (Auto) 0.3 (0-0.5) % Neut % (Auto) 78.7 H (45.5-73.1) % Lymph % (Auto) 9.3 L (18.3-44.2) % [place] % (Auto) 9.9 H (2.6-8.5) % Eos % (Auto) 1.3 (0-4.4) % Baso % (Auto) 0.5 (0.2-1.2) % Lymph # (Auto) 0.73 L (0.9-3.2) K/mm3 [place] # (Auto) 0.8 H (0.1-0.6) K/mm3 Eos # (Auto) 0.1 (0-0.3) K/mm3 Baso # (Auto) 0.0 (0.0-0.1) K/mm3 Abs Immat Gran (auto) 0.02 (0.00-0.031) K/mm3 Absolute Neuts (auto) 6.2 (1.3-6.7) K/mm3 Absolute Nucleated RBC 0.000 (0.0-0.012) K/mm3 Nucleated RBC % 0.0 (0.0-0.2) % PT 16.2 H (11.1-14.7) Seconds INR 1.3 APTT 27.7 (22.3-36.8) Seconds Sodium 135 L (137-145) mmol/L Potassium 4.5 (3.4-5.0) mmol/L Chloride 101 (98-107) mmol/L Carbon Dioxide 24 (22-30) mmol/L Anion Gap 10 (4-12) mmol/L BUN 39 H D (7-17) mg/dL Creatinine 1.78 H (0.7-1.0) mg/dL Estim Creat Clear Calc 20 ml/min Estimated GFR 28 L (59 - ) Glucose 112 H (65-110) mg/dL Calcium 9.4 (8.4-10.2) mg/dL Total Bilirubin 0.6 (0.2-1.3) mg/dL AST 28 (14-36) U/L ALT 18 (6-35) U/L Alkaline Phosphatase 70 (38-126) U/L Total Creatine Kinase 59 (30-135) U/L Troponin I < 0.012 < 0.012 (0.000-0.034) ng/mL Total Protein 8.2 (6.3-8.2) g/dL Albumin 4.1 (3.5-5.1) g/dL Lipase 233 (23-300) U/L Urine Color Yellow (Yellow) Urine Appearance Clear (Clear) Urine pH 6.5 (5.0-9.0) Ur Specific [place] 1.013 (1.001-1.035) Urine Protein Trace (Negative) mg/dL Urine Glucose (UA) Negative (Negative) mg/dL Urine Ketones Negative (Negative) mg/dL Ur Blood (Man) Negative (Negative) Urine Nitrate Negative (Negative) Urine Bilirubin Negative (Negative) Urine Urobilinogen 0.2 (<2.0) mg/dL Leukocyte Esterase Rfl Trace H (Negative) LENA/UL Urine RBC 0-2 (0-2) /hpf Urine WBC 0-5 (0-3) /hpf Ur Squamous Epith Cells None seen (Few) /hpf Urine Bacteria None seen /hpf Urine Casts 0-2 Influenza A (RT-PCR) Negative (Negative) Influenza B (RT-PCR) Negative (Negative) RSV (RT-PCR) Negative (Negative) SARS-CoV-2 RNA (RT-PCR) Negative (Negative) <Dianelys Shields, RADIO REPAIRMAN - Last Filed: 04/06/25 15:48> Lab Results 04/06/25 04/06/25 04/06/25 Range/Units 15:48 16:26 18:59 WBC 7.9 (4.5-10.0) K/mm3 RBC 3.90 L (4.2-5.4) M/mm3 Hgb 11.3 L (12.0-15.0) g/dL Hct 34.6 L (37.0-47.0) % MCV 88.7 (80-100) fl MCH 29.0 (26-34) pg MCHC 32.7 (32-36) g/dl RDW 12.8 (11.5-14.5) % Plt Count 232 (150-375) k/mm3 MPV 10.1 (7.4-10.4) fl Immature Gran % (Auto) 0.3 (0-0.5) % Neut % (Auto) 78.7 H (45.5-73.1) % Lymph % (Auto) 9.3 L (18.3-44.2) % [place] % (Auto) 9.9 H (2.6-8.5) % Eos % (Auto) 1.3 (0-4.4) % Baso % (Auto) 0.5 (0.2-1.2) % Lymph # (Auto) 0.73 L (0.9-3.2) K/mm3 [place] # (Auto) 0.8 H (0.1-0.6) K/mm3 Eos # (Auto) 0.1 (0-0.3) K/mm3 Baso # (Auto) 0.0 (0.0-0.1) K/mm3 Abs Immat Gran (auto) 0.02 (0.00-0.031) K/mm3 Absolute Neuts (auto) 6.2 (1.3-6.7) K/mm3 Absolute Nucleated RBC 0.000 (0.0-0.012) K/mm3 Nucleated RBC % 0.0 (0.0-0.2) % PT 16.2 H (11.1-14.7) Seconds INR 1.3 APTT 27.7 (22.3-36.8) Seconds Sodium 135 L (137-145) mmol/L Potassium 4.5 (3.4-5.0) mmol/L Chloride 101 (98-107) mmol/L Carbon Dioxide 24 (22-30) mmol/L Anion Gap 10 (4-12) mmol/L BUN 39 H D (7-17) mg/dL Creatinine 1.78 H (0.7-1.0) mg/dL Estim Creat Clear Calc 20 ml/min Estimated GFR 28 L (59 - ) Glucose 112 H (65-110) mg/dL Calcium 9.4 (8.4-10.2) mg/dL Total Bilirubin 0.6 (0.2-1.3) mg/dL AST 28 (14-36) U/L ALT 18 (6-35) U/L Alkaline Phosphatase 70 (38-126) U/L Total Creatine Kinase 59 (30-135) U/L Troponin I < 0.012 < 0.012 (0.000-0.034) ng/mL Total Protein 8.2 (6.3-8.2) g/dL Albumin 4.1 (3.5-5.1) g/dL Lipase 233 (23-300) U/L Urine Color Yellow (Yellow) Urine Appearance Clear (Clear) Urine pH 6.5 (5.0-9.0) Ur Specific [place] 1.013 (1.001-1.035) Urine Protein Trace (Negative) mg/dL Urine Glucose (UA) Negative (Negative) mg/dL Urine Ketones Negative (Negative) mg/dL Ur Blood (Man) Negative (Negative) Urine Nitrate Negative (Negative) Urine Bilirubin Negative (Negative) Urine Urobilinogen 0.2 (<2.0) mg/dL Leukocyte Esterase Rfl Trace H (Negative) LENA/UL Urine RBC 0-2 (0-2) /hpf Urine WBC 0-5 (0-3) /hpf Ur Squamous Epith Cells None seen (Few) /hpf Urine Bacteria None seen /hpf Urine Casts 0-2 Influenza A (RT-PCR) Negative (Negative) Influenza B (RT-PCR) Negative (Negative) RSV (RT-PCR) Negative (Negative) SARS-CoV-2 RNA (RT-PCR) Negative (Negative) <Lucia Perdomo PA-C - Last Filed: 04/06/25 19:35> Imaging Data Radiologist's impression: ITS Impressions Chest X-Ray 04/06/25 16:02 IMPRESSION: Findings concerning for subsegmental right upper lobe pneumonia. <Lucia Perdomo PA-C - Last Filed: 04/06/25 19:35> ECG Data EKG #1: ECG completion date: 04/06/25 <JUANPABLO Vyas Last Filed: 04/06/25 19:35> EKG Interpretation: normal rate, sinus rhythm, no ST changes and normal QT <JUANPABLO Vyas Last Filed: 04/06/25 19:35> Critical Care Time Critical Care Time Critical Care Time: No <JUANPABLO Vyas Last Filed: 04/06/25 19:35> Discharge Plan Discharge Clinical Impression: Pneumonia Qualifiers: Pneumonia type: due to unspecified organism Laterality: right Lung location: u pper lobe of lung Qualified Code(s): J18.9 - Pneumonia, unspecified organism <Dianelys Shields APRN - Last Filed: 04/06/25 15:48> Patient Disposition: Home <Dianelys Shields APRN - Last Filed: 04/06/25 15:48> Condition: Stable <Dianelys Shields APRN - Last Filed: 04/06/25 15:48> Instructions: Antibiotic Form, Community Acquired Pneumonia (ED) <Dianelys Shields APRN - Last Filed: 04/06/25 15:48> Additional Instructions: Return to the emergency department for worsening symptoms, or any other concerns Remain well-hydrated, get plenty of rest. Take Tylenol or Motrin [id number] for pain as needed. Take oral antibiotics as prescribed Follow up with primary care doctor <Dianelys Shields APRN - Last Filed: 04/06/25 15:48> Patient Language: Kiswahili <Dianelys Shields APRN - Last Filed: 04/06/25 15:48> Prescriptions: New doxycycline hyclate 100 mg tablet 100 mg PO BID 5 Days Qty: 10 0RF amoxicillin 500 mg tablet 1,000 mg PO Q8H 5 Days Qty: 30 0RF No Action valsartan-hydrochlorothiazide 320-25 mg tablet 1 tablet PO DAILY Qty: 30 5RF escitalopram oxalate 10 mg tablet 10 mg PO DAILY Qty: 90 2RF atorvastatin 40 mg tablet 40 mg PO DAILY Qty: 90 3RF carvedilol 12.5 mg tablet 12.5 mg PO Q12H Qty: 180 2RF Rx Instructions: must administer with a meal/food amlodipine 5 mg tablet See Rx Instructions .ROUTE .COMPLEX Qty: 90 2RF Dose Instruction: TAKE 1 TABLET DAILY Rx Instructions: TAKE 1 TABLET DAILY <Dianelys Shields APRN - Last Filed: 04/06/25 15:48> Follow-up/Referrals: Carmen Hightower MD [Primary Care Provider] - <Dianelys Shields APRN - Last Filed: 04/06/25 15:48>
[2025-04-06 15:55] LABS: Hematocrit 34.6 % (37.0-47.0); Hemoglobin 11.3 g/dL (12.0-15.0); Immature Granulocyte Percent A 0.3 % (0-0.5); Lymphocytes Absolute Auto 0.73 K/mm3 (0.9-3.2); Mean Corpuscular HGB Conc 32.7 g/dl (32-36); Mean Corpuscular Hemoglobin 29.0 pg (26-34); Mean Corpuscular Volume 88.7 fl (80-100); Nucleated Red Blood Cells Absolute Auto 0.000 K/mm3 (0.0-0.012); Nucleated Red Blood Cells Perc 0.0 % (0.0-0.2); Platelet Count Result 232 k/mm3 (150-375); Red Blood Count 3.90 M/mm3 (4.2-5.4); White Blood Count 7.9 K/mm3 (4.5-10.0)
[2025-04-06 16:07] LABS: INR 1.3; Prothrombin Time 16.2 Seconds (11.1-14.7)
[2025-04-06 16:08] LABS: Partial Thromboplastin Time 27.7 Seconds (22.3-36.8)
[2025-04-06 16:22] LABS: Alanine Aminotransferase 18 U/L (6-35); Albumin Level 4.1 g/dL (3.5-5.1); Alkaline Phosphatase 70 U/L (38-126); Anion Gap 10 mmol/L (4-12); Aspartate Amino Transferase 28 U/L (14-36); Bilirubin,Total 0.6 mg/dL (0.2-1.3); Blood Urea Nitrogen 39 mg/dL (7-17); Calcium 9.4 mg/dL (8.4-10.2); Carbon Dioxide 24 mmol/L (22-30); Chloride 101 mmol/L (98-107); Creatine Kinase 59 U/L (30-135); Estimated CRCL calculation 20 ml/min; Estimated Glomerular Filt Rate 28; Glucose 112 mg/dL (65-110); Lipase 233 U/L (23-300); Potassium 4.5 mmol/L (3.4-5.0); Sodium 135 mmol/L (137-145); Total Protein 8.2 g/dL (6.3-8.2)
[2025-04-06 16:32] LABS: Influenza A QL RT-PCR Negative (Negative); Influenza B QL RT-PCR Negative (Negative); RSV RNA, RT-PCR Negative (Negative); SARS-CoV-2 RNA PCR Negative (Negative)
[2025-04-06 16:33] LABS: Troponin I < 0.012 ng/mL (0.000-0.034)
[2025-04-06 16:45] LABS: Add Urine Microscopic? YES; Appearance Urine Clear (Clear); Glucose Urine UA Negative (Negative); Leukocyte Esterase Ur Trace LEU/UL (Negative); Nitrate Urine Negative (Negative); Non Pathogenic Casts 0-2; Specific Grav Ur 1.013 (1.001-1.035)
--- NOTE | 2025-04-06 18:40 | ECG_ITS ---
Test Date: 2025-04-06 18:48:44 Measurements Intervals Swisher Rate: 62 P: 51 NM: 171 QRS: 13 QRSD: 124 T: 23 QT: 437 QTc: 445 Interpretive Statements SINUS RHYTHM INCOMPLETE RIGHT BUNDLE-BRANCH BLOCK MODERATE ST DEPRESSION [0.05+ mV ST DEPRESSION] ABNORMAL ECG Electronically Signed On 04-07-2025 10:02:24 CDT by David Turpin M.D.
--- OUTSIDE RECORDS SUMMARY | 2025-04-06 19:06 | XMS_ITS | Clinical Summary ---
Author Organization 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
--- OUTSIDE RECORDS SUMMARY | 2025-04-06 19:06 | XMS_ITS | Continuity of Care Document ---
Author Name [facility] Organization [facility] Care Team Providers Care Assessment Counselor Name Role Phone [facility] Unavailable Unavailable Medications Combined list of outpatient medications from Department of Defense and Veterans Affairs facilities.Medications provided include 1) outpatient medications from the last 15 months, and 2) patient-reported medications. Medication Details Route Status Patient Instructions Prescription Expires Prescription Number Last Dispense Date Ordering Provider Order Date Order Qty Source AMLODIPINE BESYLATE (AMLODIPINE BESYLATE), 10 MG, TABLET, ORAL, [employer], 1000 ea. BOTTLE Active [id number] 4 2023 30 Pharmac y Data Transac tion Service Facilit y ATORVASTATI N CALCIUM (atorvastat in calcium), 40 MG, TABLET, ORAL, [employer], 1000 ea. BOTTLE Active [id number] 2023 90 Pharmac y Data Transac tion Service Facilit y HYDROCHLORO THIAZIDE (hydrochlor othiazide), 25 MG, TABLET, ORAL, [employer] 1000 ea. BOTTLE Active [id number] 4 2023 90 Pharmac y Data Transac tion Service Facilit y Social History Combined list of available smoking, tobacco, and other social history from Department of Defense and Veterans Affairs facilities. Social History Type Response Date Comment Mariya rushing This section is an empty social history section. DoD
--- OUTSIDE RECORDS SUMMARY | 2025-04-06 19:06 | XMS_ITS | Referral Summary ---
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 Gender Identity Not on file Sexual Orientation Not on file Last Filed Vital Signs Vital Sign Reading Time Taken Comments Blood Pressure 136/88 01/09/2023 4:13 PM CDT Pulse 60 01/09/2023 4:13 PM CDT Temperature 36.8 C (98.3 F) 10/17/2022 10:23 AM 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
--- OUTSIDE RECORDS SUMMARY | 2025-04-06 19:06 | XMS_ITS | Clinical Summary ---
Author Organization [facility] [employer] Address [address] [place] [address] Care Team Providers Care Power Digger Operator Name Role Phone Carmen Hightower MD Primary Care Provider [phone] Source Comments [facility] [employer],non-owned Affiliates and Associated Physician Practices is amultiple site organization consisting of ambulatory clinics and hospital sitesin [place], [place], [place] and [place]. This disclosure is being madepursuant to the Care Everywhere program and may not contain all information available regarding this patient. 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 Gender Identity Female 06/03/2024 7:44 PM CDT [...] Description 06/03/2025 12:50 PM CDT Office Visit [facility] - Dermatology [address] [place] [address], [place] [id number] Katlin Abbott MD [address] [facility] [address] DEPT [place] [address] Health Maintenance Due Date Last Done Comments [...] age to complete this topic Insurance MEDICARE [facility] MEDICARE Care Teams Power Digger Operator Relationship Specialty Start Date End Date Carmen Hightower MD [address] [place] [address] PCP - General Family Medicine 11/29/23
--- OUTSIDE RECORDS SUMMARY | 2025-04-06 19:06 | XMS_ITS | Encounter Summary ---
Author Organization [facility] Address [address] [place] [address] Care Team Providers Care Windows Infrastructure Engineer Name Role Phone Carmen Hightower MD Primary Care Provider [phone] Carmen Hightower MD Primary Care Provider [phone] Reason for Visit * Reason Onset Date Comments Results 12/05/2020 Encounter Details Date Type Department Care Team (Late st Contact Info) Description 12/05/2020 Telephone [facility] [address] [place] [address], [facility] [address] Mary Pereira PA [address] [place] [address] [address] [place] [address] Results Social History Tobacco Use Types Packs/Day Years Used Date Smoking Tobacco: Never Smokeless Tobacco: Never Alcohol Use Standard Drinks/Week Comments Yes 0 (1 standard drink = 0.6 oz pur e alcohol) Comments Unknown Sex and Gender Information Value Date Recorded Sex Assigned at Female 06/03/2024 7:44 PM CDT 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 - Dermatology [address] [place] [address], [place] [address] Katlin Abbott MD [address] [place] [address] [address] [place] [address] documented as of this encounter Visit Diagnoses Not on filedocumented in this encounter Care Teams Windows Infrastructure Engineer Relationship Specialty Start Date End Date Carmen Hightower MD [address] [place] [address] PCP - General 03/25/09 11/28/23 Carmen Hightower MD [address] [place] [address] PCP - General Family Medicine 11/29/23 documented as of this encounter
[2025-04-06] MEDS: SODIUM CHLORIDE 0.9% IV 500 ML 999 ML IV CONT (19:16)
[2025-04-06 19:28] LABS: Troponin I < 0.012 ng/mL (0.000-0.034)
== END 2025-04-06 20:12 | disposition home or self-care (01) ==
LOC: ANHED 19:04
PROVIDERS: Registered Nurse; Emergency Provider Physician Assistant; PCP Family Medicine
DX: J18.9 Pneumonia, unspecified organism (principal); Z20.822 Contact with and (suspected) exposure to COVID-19; I12.9 Hypertensive chronic kidney disease with stage 1 through stage 4 chronic kidney disease, or unspecified chronic kidney disease; N18.30 Chronic kidney disease, stage 3 unspecified; E78.5 Hyperlipidemia, unspecified; Z85.828 Personal history of other malignant neoplasm of skin; Z79.899 Other long term (current) drug therapy; I45.10 Unspecified right bundle-branch block; R94.31 Abnormal electrocardiogram [ECG] [EKG]
CPT/HCPCS: 36415; 71046; 80053; 81001; 82550; 83690; 84484; 85025; 85610; 85730; 87637; 93005; 96360; 99284; J7040

== ENCOUNTER 2025-05-12 14:58 | Outpatient (CLI) | payer MEDICARE, OTHER, SELFPAY ==
--- NOTE | ~2025-05-12 | XR_ITS ---
EXAMINATION: XR chest 2V 05/12/2025 15:23 INDICATION: Shortness of breath PROCEDURE: 2 view chest COMPARISON: 04/06/2025 FINDINGS: The lungs are clear. The cardiomediastinal silhouette is within normal limits. There are no pleural effusions. There is no pneumothorax suspected. IMPRESSION: 1: NO ACUTE CARDIOPULMONARY DISEASE. Reviewed, dictated and finalized at location O.
== END 2025-05-12 14:59 | disposition home or self-care (01) ==
PROVIDERS: PCP Family Medicine; Visit Provider Student in an Organized Health Care Education/Training Program
DX: R06.02 Shortness of breath (principal)
CPT/HCPCS: 71046

== ENCOUNTER 2025-06-05 10:56 | Emergency (ER) | payer MEDICARE, OTHER, SELFPAY ==
[2025-06-05] VITALS (10 sets, daily range): BP systolic 145–230; BP diastolic 63–84; PULSE 51–82; RESP 16–18; TEMP 36.8; O2SAT 94–100
--- NOTE | ~2025-06-05 | CT_ITS ---
EXAMINATION: CT brain wo ivan, 06/05/2025 15:15 CDT HISTORY: head injury COMPARISON: No comparisons available. Technique: Axial images obtained of the brain without contrast. One or more of the following dose reduction techniques were used: automated exposure control, adjustment of the mA and/or kV according to patient size, use of iterative reconstruction technique. Findings: No acute infarct or parenchymal hemorrhage. No abnormal mass or mass effect. No midline shift. No extra-axial fluid collections. No hydrocephalus. Mastoid air cells unremarkable. Sinuses and orbits unremarkable. No acute fracture. No significant facial or scalp soft tissue swelling evident. No radiopaque foreign body is seen. Impression: 1.No acute intracranial abnormality. Reviewed, dictated and finalized at location A. Impression: 1.No acute intracranial abnormality.
--- NOTE | ~2025-06-05 | XR_ITS ---
EXAMINATION: XR ribs RT 2V w CXR 2V, 06/05/2025 15:08 CDT HISTORY: fall COMPARISON: No comparisons available. Findings: No acute fracture or malalignment. No significant degenerative changes. Soft tissues unremarkable. Impression: No acute fracture or malalignment. Reviewed, dictated and finalized at location A. Impression: No acute fracture or malalignment.
--- NOTE | ~2025-06-05 | CT_ITS ---
EXAMINATION: CT facial & cervical spine wo COMPARISON: None HISTORY: fall, head injury TECHNIQUE: Axial images were obtained without IV contrast. Sagittal, coronal reconstruction images were obtained from the axial views. CT scan performed using dose optimization techniques including the following automated exposure control; adjustment of mA and/or kV; use of iterative reconstruction technique. Automatic exposure control was used to reduce radiation dose. Permanent radiation dose record is archived to PACS. FINDINGS: CT facial bones: The nasal bones are intact. Anterior maxillary sinus ramirez and zygomatic arches are intact. The temporomandibular joints are intact. Orbital floors and medial orbits are intact. Minimal ethmoidal sinusitis. There is no retrobulbar hemorrhage or preseptal soft tissue swelling. CT cervical spine: The lung apices demonstrate chronic changes. The soft tissues are unremarkable. Grade 1 anterolisthesis of C2 on C3 C3 on C4 and C7 on T1, no acute fracture. Severe loss of disc height at C3-4, C4-5 and C5-6 with moderate to severe canal and foraminal stenosis, outpatient MRI is recommended. IMPRESSION: No acute fracture Reviewed, dictated and finalized at location A. IMPRESSION: No acute fracture
--- OUTSIDE RECORDS SUMMARY | 2025-06-05 10:58 | XMS_ITS | Encounter Summary ---
Author Organization [facility] Address [address] [place] [address] Phone Care Team Providers Care Assistant Plant Controller Name Role Phone Carmen Hightower MD Primary Care Provider [phone] Encounter Details Date Type Department Care Team (Late st Contact Info) Description 05/07/2025 Telephone [facility] Medicine Cardiology [facility] Medicine 8th [place] [address] [place] [address] Naomi Mcghee Social History Tobacco Use Types Packs/Day Years Used Date Smoking Tobacco: Never Alcohol Use Standard Drinks/Week Comments Yes 0 (1 standard drink = 0.6 oz pur e alcohol) Comments Unknown Sex and Gender Information Value Date Recorded Sex Assigned at Not on file 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 Gender Identity Not on file Sexual Orientation Not on file documented as of this encounter Miscellaneous Notes * Telephone Encounter - Mae Hansen CMA - 05/11/2025 11:33 AM CDT Records in chart 8.26.25 cmr * Telephone Encounter - Naomi Mcghee - 05/07/2025 1:20 PM CDT CARDIOLOGY NEW PATIENT RECORDS REVIEW Insurance Information Insurance Library Insurance Provider: Medicare/ Member ID: Group number: Diagnosis and Referring Provider Information (Check for Referrals in [facility]) Cardiac Diagnosis:possible Sinus Bradycardia, RBBB, 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 Current/Former Orientation And Mobility Specialist Phone: Questions to Determine Placement for Specialty Clinics Cardiology-Oncology Are you actively undergoing cancer treatments including radiation, chemotherapy, or immunotherapy or is this planned in the future?: yes - Skin Cancer - Moles surgery When: 2022 Where: Dr. [place] - office Congenital Is this a heart condition that has existed since : no Maternal- Cardiology (Females Only) Are you or had a baby in the past year: no Sports Medicine Do you regularly exercise or play sports: no Are the symptoms or concerns associated with acviity: no Hypertension (If yes, must be referred by MD) Are you a hemodialysis or peritoneal dialysis patient: no Referring provider: Cardiology History Questions Have you been hospitalized for cardiac issues: no When: Where: Have you had an echo: yes When: 2023 or longer Where: Dr. [place] - office Have you had a stress test: yes - Several yrs ago 5-10 yrs ago When: Where: Have you had an EKG: yes When: 04/27/25 Where: [facility] Have you had a holter monitor: no When: Where: Have you had cardiac imaging(CT or MRI): no Testing/imaging: When: Where: Have you had any procedures (cath, CABG, cardioversion, or ablation): no When: Where: Have you had a sleep study done: no When: Where: Do you have an implantable cardiac device: no Type: [employer]: When: Where: Appointment Details Date: 07/26/25 Time: 12 pm Location: cam Provider: Nino documented in this encounter Plan of Treatment Not on file documented as of this encounter Visit Diagnoses Not on filedocumented in this encounter Care Teams Assistant Plant Controller Relationship Specialty Start Date End Date Carmen Hightower MD PCP - General 08/27/08 documented as of this encounter
--- OUTSIDE RECORDS SUMMARY | 2025-06-05 10:58 | XMS_ITS | Clinical Summary ---
Author Organization [facility] [address] Address [address] [place] [address] Care Team Providers Care Foam Molder Name Role Phone Carmen Hightower MD Primary Care Provider [phone] Allergies Active Allergy Reactions Criticality Noted Date Comments Amoxicillin Rash Medium 04/27/2025 Benazepril Iodine And Iodide Containing Products Medications metoprolol XL (TOPROL-XL) 50 mg 24 hr tablet take 1 tablet by oral route every day 30 6 5 Active Additional Information Patient not taking.Reported on 04/27/2025 losartan (COZAAR) 100 mg tablet take 1 tablet by oral route every day 0 0 5 Active Additional Information Patient not taking.Reported on 05/18/2022 valACYclovir (VALTREX) 500 mg tablet take 1 tablet by oral route every day 0 0 5 Active Additional Information Patient not taking.Reported on 04/27/2025 amLODIPine (NORVASC) 5 mg tablet take 1 tablet by oral route every day 0 0 5 Active Additional Information Patient not taking.Reported on 04/27/2025 atorvastatin (LIPITOR) 40 mg tablet take 1 tablet by oral route every day 0 0 5 Active valsartan (DIOVAN) 80 mg tablet 2 Active escitalopram (LEXAPRO) 10 mg tablet 2 Active metoprolol XL (TOPROL-XL) 100 mg 24 hr tablet 2 Active valsartan-hydro chlorothiazide (DIOVAN-HCT) 320-25 mg per tablet 5 Active carvediloL (COREG) 12.5 mg tablet Take 1 tablet (12.5 mg total) by mouth 2 (two) times a day 5 Active Active Problems Problem Noted Date Diagnosed Date Lightheadedness 09/19/2015 Overview (12/21/2016): Lightheadedness Bradycardia 06/13/2015 Overview (12/21/2016): Bradycardia Benign hypertension 06/13/2015 Overview (12/21/2016): HTN (hypertension), benign Dyslipidemia 06/13/2015 Overview (12/21/2016): Dyslipidemia Dizziness 06/13/2015 Overview (12/21/2016): Dizziness Palpitations 06/13/2015 Overview (12/21/2016): Palpitations Encounters Date Type Department Care Team Description 05/07/2025 Telephone [facility] Medicine Cardiology [address] [facility] 8th [place] [address] [place] [address] Naomi Mcghee 04/27/2025 3:45 PM CDT Ancillary Procedure [facility] Imaging at [address] [address] Other chest pain 04/27/2025 2:45 PM CDT Office Visit [facility] Convenient Care at [address] [address] Oscar Betanocurt NP Sensation of chest pressure (Primary Dx) 04/27/2025 Results Follow-Up [facility] Convenient Care at [address] [address] Oscar Betancourt NP XR Chest PA Lateral 2 Views from Last 3 Months Medical History Medical History Date Comments Superficial basal cell carcinoma Cancer, basal Cell; Comments: [facility] 06/13/2015 - Osteoporosis Osteoporosis Hypertension Hypertension Hypercholesterolemia Hypercholes terolemia; Comments: [facility] 06/13/2015 - Family History Medical History [...] on file 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 Gender Identity Not on file Sexual Orientation Not on file Obstetrics History Last Filed Vital Signs Vital Sign Reading Time Taken Comments Blood Pressure 128/80 04/27/2025 2:43 PM CDT Pulse 52 04/27/2025 2:43 PM CDT Temperature 36.8 C (98.3 F) 04/27/2025 2:43 PM CDT Respiratory Rate 20 04/27/2025 2:43 PM CDT Oxygen Saturation 98% 04/27/2025 2:43 PM CDT Inhaled Oxygen Concentration - - Weight 68.7 kg (151 lb 6.4 oz) 04/27/2025 2:43 P M CDT Height 154.9 cm (5' 1) 01/09/2023 4:13 PM CDT Body Mass Index 28.61 01/09/2023 4:13 PM CDT Plan of Treatment Health Maintenance Due Date Last Done Comments Depression Screening 1945 Fall Risk Assessment 1945 Hepatitis C Screening 1945 Osteoporosis Screening-Bone Density Scan 1945 DTaP/Tdap/Td Vaccine (1 - Tdap) 1958 Hepatitis B Screening 1965 Pneumococcal vaccine 65+ (1 of 1 - PCV) 1997 Zoster Vaccine (1 of 2) 1997 Well Visit 65+ 2012 Covid-19 Vaccine (3 - season) 05/17/202501/2021, 10/20/2020 Influenza Vaccine (#1) 2025 Procedures Procedure Name Priority Date/Time Associated Diagnosis Comments XR CHEST PA LATERAL 2 VIEWS Schedule JESSY, Read JESSY (Appt Today, Awaiting Results) 04/27/2025 3:48 PM CDT Other chest pain ECG 12-LEAD Routine 04/27/2025 3:02 PM CDT Sensation of chest pressure from Last 3 Months Results * XR Chest PA Lateral 2 Views (04/27/2025 3:48 PM CDT) Anatomical Region Laterality Modality Body, Chest N/A Digital Radiogra phy 04/27/2025 4:03 PM CDT Narrative 04/27/2025 4:04 PM CDT EXAM DESCRIPTION: XR CHEST PA LATERAL 2 VIEWS REASON FOR STUDY: chest discomfort Pt had pneumonia diagnosed at the end of March. Still having chest discomfort. No surgery to heart, lungs, or chest. Pt is a non-smoker. Pt has history of prior left rib fractures. TECHNIQUE: There are 2 radiographic view(s) of the chest. COMPARISON: 10/17/2022 in 05/18/2022 FINDINGS: LUNGS: Pulmonary vascularity appears normal. No infiltrate or effusion. Linear opacity peripheral right lung base is again seen favoring scarring or atelectasis similar to prior. HEART/MEDIASTINUM: Senescent change of the aorta. Otherwise, normal cardiomediastinal silhouette. LINES/TUBES: None. BONES: Moderate spondylosis thoracic spine. IMPRESSION: 1. No acute findings or infiltrate. 2. Linear opacity peripheral right lung base favors scarring or atelectasis similar to prior. THIS IS AN ELECTRONICALLY VERIFIED FINAL REPORT 04/27/2025 4:04 PM - Electronically signed by Elgin Heath M.D. MJ T: Report ID: [id number] Reading Location: [id number] Procedure Note Elgin Heath MD - 04/27/2025 EXAM DESCRIPTION: XR CHEST PA LATERAL 2 VIEWS REASON FOR STUDY: chest discomfort Pt had pneumonia diagnosed at the end of March. Still having chestdiscomfort. No surgery to heart, lungs, or chest. Pt is a non-smoker. Pt has historyof prior left rib fractures. TECHNIQUE: There are 2 radiographic view(s) of the chest. COMPARISON: 10/17/2022 in 05/18/2022 FINDINGS: LUNGS: Pulmonary vascularity appears normal. No infiltrate or effusion. Linear opacity peripheral right lung base is again seenfavoring scarring or atelectasis similar to prior. HEART/MEDIASTINUM: Senescent change of the aorta. Otherwise, normal cardiomediastinal silhouette. LINES/TUBES: None. BONES: Moderate spondylosis thoracic spine. IMPRESSION: 1. No acute findings or infiltrate. 2. Linear opacity peripheral right lung base favors scarring oratelectasis similar to prior. THIS IS AN ELECTRONICALLY VERIFIED FINAL REPORT 04/27/2025 4:04 PM - Electronically signed by Elgin Heath M.D. MJ T: Report ID: [id number] Reading Location: [place] [address] Oscar Betancourt NP IMG XR PROCEDURES Final Result * ECG 12 lead (04/27/2025 3:02 PM CDT) Oscar Betancourt NP ECG ORDERABLES Final Result from Last 3 Months Insurance MEDICARE [employer] MEDICARE [facility] MEDIC[facility] FOR LIFE Care Teams Foam Molder Relationship Specialty Start Date End Date Carmen Hightower MD PCP - General 08/27/08
--- OUTSIDE RECORDS SUMMARY | 2025-06-05 10:58 | XMS_ITS | Clinical Summary ---
Author Organization [facility] Address [address] [place] [address] Care Team Providers Care Clinical Rehabilitation Coordinator Name Role Phone Carmen Hightower MD Primary Care Provider [phone] Source Comments [facility]),non-owned Affiliates and Associated Physician Practices is amultiple site organization consisting of ambulatory clinics and hospital sitesin [place], [place], [place] and [place]. This disclosure is being madepursuant to the Care Everywhere program and may not contain all information available regarding this patient. Last updated 18.[facility] Allergies Active Allergy Reactions Criticality Noted Date [...] PM CDT Legal Sex Female 5:14 PM URGENT CARE NURSE PRACTITIONER Gender Identity Female 06/03/2024 7:44 PM CDT [...] Care Team (Late st Contact Info) Description 09/24/2025 11:10 AM URGENT CARE NURSE PRACTITIONER Office Visit [facility] - Dermatology [address] [place] [address], [place] [id number] Katlin Abbott MD [address] [facility] [address] [place] [address] Health Maintenance Due Date Last Done Comments BONE DENSITY TESTING 1945 MEDICARE AWV 12 MONTHS 1945 HEPATITIS C SCREENING 03/06/1965 DTAP/TDAP/TD VACCINES (1 - Tdap) 1966 PNEUMOCOCCAL VACCINE 50+ (1 of 1 - PCV) 1997 ZOSTER VACCINE (1 of 2) 1997 Respiratory Syncytial Virus (RSV) Vaccine Pt: or over 60 yrs (1 - 1-dose 75+ series) 2022 DEPRESSION SCREENING 09/16/2024 COVID-19 VACCINE (1 - 2023-2 5 season) 2025 INFLUENZA VACCINE (#1) 2025 HEPATITIS B VACCINE [...] age to complete this topic Insurance MEDICARE [facility] MEDICARE Care Teams Clinical Rehabilitation Coordinator Relationship Specialty Start Date End Date Carmen Hightower MD [address] [place] [address] PCP - General Family Medicine 11/29/23
--- OUTSIDE RECORDS SUMMARY | 2025-06-05 10:58 | XMS_ITS | Encounter Summary ---
Author Organization [facility] Address [address] [place] [address] Care Team Providers Care Car Hopper Name Role Phone Carmen Hightower MD Primary Care Provider [phone] Encounter Details Date Type Department Care Team (Late st Contact Info) Description 04/27/2025 Results Follow-Up [facility] Convenient Care at [place] [address] [place] [address] Oscar Betancourt NP [address] [facility] [address] [place] [address] XR Chest PA Lateral 2 Views Social History Tobacco Use Types Packs/Day Years Used Date Smoking Tobacco: Never Alcohol Use Standard Drinks/Week Comments Yes 0 (1 standard drink = 0.6 oz pur e alcohol) Comments Unknown Sex and Gender Information Value Date Recorded Sex Assigned at Not on file 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
--- OUTSIDE RECORDS SUMMARY | 2025-06-05 10:58 | XMS_ITS | Encounter Summary ---
Author Organization [facility] Health Address [address] [facility] [place] [address] Care Team Providers Care Solar Sales Manager Name Role Phone Carmen Hightower MD Primary Care Provider [phone] Carmen Hightower MD Primary Care Provider [phone] Reason for Visit * Reason Onset Date Comments Results 12/05/2020 Encounter Details Date Type Department Care Team (Late st Contact Info) Description 12/05/2020 Telephone [facility] [address] [place] [address], [facility] [place] [address] Mary Pereira PA [address] [place] [address] 3 [place] [address] Results Social History Tobacco Use Types Packs/Day Years Used Date Smoking Tobacco: Never Smokeless Tobacco: Never Alcohol Use Standard Drinks/Week Comments Yes 0 (1 standard drink = 0.6 oz pur e alcohol) Comments Unknown Sex and Gender Information Value Date Recorded Sex Assigned at Female 06/03/2024 7:44 PM CDT 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 Gender Identity Female 06/03/2024 7:44 PM CDT [...] st Contact Info) Description 09/24/2025 11:10 AM TOOL GRINDER Office Visit [facility] - Dermatology [address] [place] [address], [place] [address] Katlin Abbott MD [address] [place] [address] 3 [place] [address] documented as of this encounter Visit Diagnoses Not on filedocumented in this encounter Care Teams Solar Sales Manager Relationship Specialty Start Date End Date Carmen Hightower MD [address] [place] [address] PCP - General 03/25/09 11/28/23 Carmen Hightower MD [address] [place] [address] PCP - General Family Medicine 11/29/23 documented as of this encounter
--- OUTSIDE RECORDS SUMMARY | 2025-06-05 14:49 | XMS_ITS | Encounter Summary ---
Author Organization [facility] Health Address [address] [facility] [place] [address] Care Team Providers Care Oss Architect Name Role Phone Carmen Hightower MD Primary Care Provider [phone] Carmen Hightower MD Primary Care Provider [phone] Reason for Visit * Reason Onset Date Comments Results 12/05/2020 Encounter Details Date Type Department Care Team (Late st Contact Info) Description 12/05/2020 Telephone [facility] [address] [place] [address], [facility] [place] [address] Mary Pereira PA [address] [place] [address] 3 [place] [address] Results Social History Tobacco Use Types Packs/Day Years Used Date Smoking Tobacco: Never Smokeless Tobacco: Never Alcohol Use Standard Drinks/Week Comments Yes 0 (1 standard drink = 0.6 oz pur e alcohol) Comments Unknown Sex and Gender Information Value Date Recorded Sex Assigned at Female 06/03/2024 7:44 PM CDT Legal Sex Female 5:14 PM DOBIE MAN Gender Identity Female 06/03/2024 7:44 PM CDT [...] st Contact Info) Description 09/24/2025 11:10 AM DOBIE MAN Office Visit [facility] - Dermatology [address] [place] [address], [place] [address] Katlin Abbott MD [address] [place] [address] 3 [place] [address] documented as of this encounter Visit Diagnoses Not on filedocumented in this encounter Care Teams Oss Architect Relationship Specialty Start Date End Date Carmen Hightower MD [address] [place] [address] PCP - General 03/25/09 11/28/23 Carmen Hightower MD [address] [place] [address] PCP - General Family Medicine 11/29/23 documented as of this encounter
--- OUTSIDE RECORDS SUMMARY | 2025-06-05 14:49 | XMS_ITS | Encounter Summary ---
Author Organization [facility] Address [address] [place] [address] Phone Care Team Providers Care Pharmacist Hospital Name Role Phone Carmen Hightower MD Primary Care Provider [phone] Encounter Details Date Type Department Care Team (Late st Contact Info) Description 05/07/2025 Telephone [facility] Medicine Cardiology [facility] Medicine 8th [place] [address] [place] [address] Naomi Mcghee Social History Tobacco Use Types Packs/Day Years Used Date Smoking Tobacco: Never Alcohol Use Standard Drinks/Week Comments Yes 0 (1 standard drink = 0.6 oz pur e alcohol) Comments Unknown Sex and Gender Information Value Date Recorded Sex Assigned at Not on file 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 Current/Former Poiser Phone: Questions to Determine Placement for Specialty [...] have an implantable cardiac device: no Type: Home Demonstrator: When: Where: Appointment Details Date: 07/26/25 Time: 12 pm Location: cam Provider: Nino documented in this encounter Plan of Treatment Not on file documented as of this encounter Visit Diagnoses Not on filedocumented in this encounter Care Teams Pharmacist Hospital Relationship Specialty Start Date End Date Carmen Hightower MD PCP - General 08/27/08 documented as of this encounter
--- OUTSIDE RECORDS SUMMARY | 2025-06-05 14:49 | XMS_ITS | Clinical Summary ---
Author Organization [facility] [address] Address [address] [place] [address] Care Team Providers Care Ambulette Driver Name Role Phone Carmen Hightower MD Primary Care Provider [phone] Allergies Active Allergy Reactions Criticality Noted Date [...] Type Department Care Team Description 05/07/2025 Telephone [facility] Medicine Cardiology [address] [facility] 8th [place] [address] [place] [address] Naomi Mcghee 04/27/2025 3:45 PM CDT Ancillary Procedure [facility] Imaging at [address] [address] Other chest pain 04/27/2025 2:45 PM CDT Office Visit [facility] Convenient Care at [address] [address] Oscar Betancourt NP Sensation of chest pressure (Primary Dx) 04/27/2025 Results Follow-Up [facility] Convenient Care at [address] [address] Oscar Betancourt NP XR Chest PA Lateral 2 Views from Last 3 Months Medical History Medical History Date Comments Superficial basal cell carcinoma Cancer, basal Cell; Comments: [facility] 06/13/2015 - Osteoporosis Osteoporosis Hypertension Hypertension Hypercholesterolemia Hypercholes terolemia; Comments: [facility] 06/13/2015 - Family History Medical History Relation [...] on file 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 MJ T: Report ID: [id number] Reading Location: [id number] Procedure Note Elgin Heath MD - 04/27/2025 [...] Elgin Heath M.D. MJ T: Report ID: [id number] Reading Location: [place] [address] Oscar Betancourt NP IMG XR PROCEDURES Final Result * ECG 12 lead (04/27/2025 3:02 PM CDT) Oscar Betancourt NP ECG ORDERABLES Final Result from Last 3 Months Insurance MEDICARE [employer] MEDICARE [facility] MEDIC[facility] FOR LIFE Care Teams Ambulette Driver Relationship Specialty Start Date End Date Carmen Hightower MD PCP - General 08/27/08
--- OUTSIDE RECORDS SUMMARY | 2025-06-05 14:49 | XMS_ITS | Encounter Summary ---
Author Organization [facility] Healthcare Address [address] [place] [address] Care Team Providers Care Room Maid Name Role Phone Carmen Hightower MD Primary Care Provider [phone] Encounter Details Date Type Department Care Team (Late st Contact Info) Description 04/27/2025 Results Follow-Up 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
--- NOTE | 2025-06-05 14:58 | ED_ITS ---
HPI - Fall General Chief Complaint: Fall Stated Complaint: fall Time Seen by Provider: 06/05/25 14:36 Source: patient Mode of arrival: ambulatory Limitations: no limitations History of Present Illness HPI Narrative: This is a 80-year-old female that presents to the emergency department after a fall 2 days ago with head injury. Reports she tripped over curb. Fell and hit the right side of her head/face on the concrete. She did not lose consciousness. Reports since she has had a persistent headache. Denies vision changes, vomiting, focal numbness or weakness. She does not take anticoagulation. 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) Hx of skin cancer, basal cell Hyperlipidemia Hypertension Surgical History Surgical History Basal cell carcinoma of nasal crease History of hip surgery Family History Family History Other Cerebrovascular accident Family history of malignant neoplasm of breast in first degree relative Hypertension Social History Social History (Updated 04/05/25 @ 14:28 by Cynthia Bejarano CMA) Smoking status: Never smoker Second hand tobacco smoke exposure: No Alcohol intake: current Substance use: never Substance use type: does not use Current Housing: Decline to Answer Concerned About Future Housing: Decline to Answer Difficulty Paying Gas/Electric Bills: Decline to Answer Difficulty Paying for Meds: Decline to Answer Currently Unemployed: Decline to Answer Education: Decline to Answer Difficulty w/ Childcare or Family Care: Decline to Answer Living arrangements: with family Gender identity (if verbalized by the patient): Female Sexual Orientation (if Verbalized by the Patient): Straight or Heterosexual Spiritual care concerns: No Agree to blood products: Yes Exam Narrative: GENERAL: Well-appearing, well-nourished, and in no acute distress. HEAD: Normocephalic. Bruising of the right upper and lower eyelid EYES: PERRLA and EOMI. ENT: Nares clear, no rhinorrhea or epistaxis. Mucous membranes moist. Oropharynx without tonsillar hypertrophy exudate or other lesions. Bilateral TMs pearly garcia non-bulging NECK: Supple. No adenopathy or masses. CHEST: Clear to auscultation. No respiratory distress. No wheezes rales or rhonchi HEART: Regular rate and rhythm. No murmur heard. Normal peripheral pulses. ABDOMEN: Soft, nontender, nondistended, normal active bowel sounds. EXTREMITIES: Normal range of motion. No edema. Strength equal in bilateral upper and lower extremities (5/5) SKIN: Warm, dry, no rash. NEURO: No focal deficits. Alert and oriented x3. Cranial nerves 2-12 grossly PSYCH: Normal mood and affect Course Course Emergency Course: Patient updated on her workup and agrees with plan of care Vital Signs Vital signs: Vital Signs Temperature 98.2 F 06/05/25 11:03 Pulse Rate 61 06/05/25 11:03 Respiratory Rate 17 06/05/25 11:03 Blood Pressure 145/70 H 06/05/25 11:03 Pulse Oximetry 98 06/05/25 11:03 Oxygen Delivery Room Air 06/05/25 11:03 Temperature 98.2 F 06/05/25 11:03 Pulse Rate 78 06/05/25 17:32 Respiratory Rate 16 06/05/25 17:32 Blood Pressure 217/81 H 06/05/25 17:32 Pulse Oximetry 100 06/05/25 17:32 Oxygen Delivery Room Air 06/05/25 15:30 MDM - Fall MDM Narrative Medical decision making narrative: Patient presents to the emergency department after a fall 2 days ago with head injury. Patient is neurologically intact. CT brain, cervical spine, facial bones without acute findings. Patient also reporting right-sided rib pain. Right rib/chest x-ray without acute abnormalities. Patient updated on her workup and agrees with plan of care. She is to follow up with primary provider. She was given warnings to return to the ER Differential Diagnosis Differential diagnosis: Likely concussion without loss of consciousness and oth er (Subdural hematoma, facial bone fracture, cervical spine fracture) Imaging Data Radiologist's impression: ITS Impressions Head CT 06/05/25 16:03 Impression: 1.No acute intracranial abnormality. Ribs w/Chest X-Ray 06/05/25 16:18 Impression: No acute fracture or malalignment. Head/Cervical Spine/Facial Bones CT 06/05/25 16:19 IMPRESSION: No acute fracture Critical Care Time Critical Care Time Critical Care Time: No Discharge Plan Discharge Clinical Impression: Head injury Qualifiers: Encounter type: initial encounter Qualified Code(s): S09.90XA - Unspecified injury of head, initial encounter Patient Disposition: Home Condition: Improved Instructions: Head Injury (ED) Additional Instructions: Return to the emergency department if you experience fever, vision changes, vomiting, weakness, numbness, or any other symptoms that are concerning to you. Rest. Ice to the area. Remain well hydrated. Tylenol or Ibuprofen as needed for pain Follow up with your primary care doctor Patient Language: Lithuanian Prescriptions: No Action triamcinolone acetonide 0.1 % cream 1 applic topical BID Qty: 30 0RF doxycycline hyclate 100 mg tablet 100 mg PO BID 5 Days Qty: 10 0RF escitalopram oxalate 10 mg tablet 10 mg PO DAILY Qty: 90 2RF atorvastatin 40 mg tablet 40 mg PO DAILY Qty: 90 3RF carvedilol 12.5 mg tablet 12.5 mg PO Q12H Qty: 180 2RF Rx Instructions: must administer with a meal/food valsartan-hydrochlorothiazide 320-25 mg tablet 1 tablet PO DAILY Qty: 30 5RF Pulmicort Flexhaler 90 mcg/actuation aerosol powdr breath activated 1 inh inhalation Q12H Qty: 1 0RF Follow-up/Referrals: Carmen Hightower MD [Primary Care Provider, Family Practice]
[2025-06-05] MEDS: METOCLOPRAMIDE HCL INJ 10 MG/2 ML VIAL IV PUSH (17:23)
[2025-06-05] MEDS: ACETAMINOPHEN 500 MG TABLET 1000 MG PO (17:24)
== END 2025-06-05 18:45 | disposition home or self-care (01) ==
PROVIDERS: Emergency Provider Physician Assistant; PCP Family Medicine
DX: S00.11XA Contusion of right eyelid and periocular area, initial encounter (principal); I12.9 Hypertensive chronic kidney disease with stage 1 through stage 4 chronic kidney disease, or unspecified chronic kidney disease; N18.30 Chronic kidney disease, stage 3 unspecified; E78.5 Hyperlipidemia, unspecified; Z85.828 Personal history of other malignant neoplasm of skin; Z79.899 Other long term (current) drug therapy; W10.1XXA Fall (on)(from) sidewalk curb, initial encounter
CPT/HCPCS: 70450; 70486; 71046; 71100; 72125; 96374; 96375; 99284; A9270; J0360; J1200; J2765